=== PATIENT | female | born 1980 | race Two or more races ===

== ENCOUNTER 2022-02-10 11:20 | Emergency (ER) | payer OTHER, SELFPAY ==
--- NOTE | ~2022-02-10 | XR_ITS ---
EXAMINATION: XR CHEST CLINICAL INFORMATION: Chest pain COMPARISON: None TECHNIQUE: 2 views of the chest were obtained. FINDINGS: No significant abnormality is noted involving the heart, lungs, mediastinum, bony thorax or soft tissues. XR/XR chest 2V IMPRESSION: Unremarkable chest examination.
--- NOTE | 2022-02-10 11:23 | ECG_ITS ---
Test Reason : headache/ chest discomfort/ hypertension Blood Pressure : / mmHG Vent. Rate : 067 BPM Atrial Rate : 067 BPM P-R Int : 144 ms QRS Dur : 084 ms QT Int : 384 ms P-R-T Axes : 043 -16 020 degrees QTc Int : 405 ms Normal sinus rhythm Moderate voltage criteria for LVH, may be normal variant ( R in aVL , [place] product ) Borderline ECG When compared to the previous EKG of No significant changes seen Referred By: Generic ED Physician Electronically Signed By:BLANCHE LOPEZ MD
[2022-02-10 11:24] VITALS: BP 173/100; PULSE 85; RESP 19; TEMP 36.6; O2SAT 100; BMI 28.3
[2022-02-10 11:46] LABS: MANUAL DIFF FLAG NO
[2022-02-10 11:50] LABS: Basophils Percent Auto 0.5 % (0-2); Eosinophils Absolute Auto 0.1 X10*3/uL (0.0-0.4); Eosinophils Percent Auto 1.8 % (0-4); Hematocrit 41.5 % (37.0-47.0); Hemoglobin 13.6 g/dl (12.0-16.0); Imm Gran Abs Auto 0.01 X10*3/uL (0.00-0.03); Imm Gran Pct Auto 0.2 % (0.0-0.4); Lymphocytes Absolute Auto 2.1 X10*3/uL (1.2-4.9); Lymphocytes Percent Auto 37.3 % (20-40); Mean Corpuscular HGB Conc 32.8 g/dl (31.0-35.0); Mean Corpuscular Hemoglobin 29.9 pg (27.0-33.0); Mean Corpuscular Volume 91.2 fL (80.0-98.0); Mean Platelet Volume 10.1 fL (9.4-12.3); Monocytes Absolute Auto 0.4 X10*3/uL (0.1-1.2); Monocytes Percent Auto 6.5 % (2-11); Neutrophils Absolute Auto 3.1 x10*3/uL (2.0-8.3); Neutrophils Percent Auto 53.7 % (45-73); Platelet Count 310 X10*3/uL (160-400); Red Blood Count 4.55 X10*6/uL (4.20-5.50); White Blood Count 5.7 X10*3/uL (4.8-10.8)
[2022-02-10 12:00] LABS: Anion Gap 12 (12-20); Blood Urea Nitrogen 10 mg/dL (9-16); Calcium 9.3 mg/dL (8.4-10.2); Carbon Dioxide 25 mmol/L (22-29); Chloride 106 mmol/L (96-108); Creatinine Clr Calc Pharmacy 93.6; Estimated Glomerular Filt Rate > 60; Glucose Random 92 mg/dL (60-115); Potassium 4.4 mmol/L (3.3-5.1); Sodium 139 mmol/L (135-145)
[2022-02-10 12:06] LABS: Troponin-I High Sensitivity < 3.5 ng/L (<3.5-17.0)
[2022-02-10 12:09] LABS: IDNOW Serial# 9DB6401D; Influenza A Negative (Negative); Influenza B2 Negative (Negative)
--- NOTE | 2022-02-10 12:23 | ED.CHESTPAIN ---
HPI - Chest Pain General Chief Complaint: Chest Pain Stated Complaint: high bp and chest pain Time Seen by Provider: 02/10/22 12:23 Source: patient Mode of arrival: ambulatory Limitations: no limitations History of Present Illness HPI narrative: HTN months ago was on chlorthalidone came off due to feeling dizzy on it - BP seemed okay BP has been high at home MD complaint: chest pain (headache, dizziness, HTN) Pertinent past history: other (HTN) Onset (ago): day(s) (HTN for a few days headache and chest pain since last night) Timing of current episode: constant Prior episodes: Yes Onset: during rest Pain location: substernal Pain radiation: none Severity: mild Quality: heaviness Exacerbating factors: nothing Context: other (untreated HTN) Treatment prior to arrival: none Related Data Previous Rx's Medication Instructions Recorded losartan 25 mg tablet 12.5 mg PO DAILY #30 tabs 02/10/22 Allergies Allergy/AdvReac Type Severity Reaction Status Date / Time drospirenone [From JUICE Schwarz] Allergy Mild RASH Unverified 05/15/20 14:46 ethinyl estradiol Allergy Mild RASH Unverified 05/15/20 14:46 [From JUICE Schwarz] JUICE Allergy Unknown rash Uncoded 11/12/11 00:00 Review of Systems Review of Systems: Constitutional : No Weight loss, No Fever, No Chills ENT/Mouth : No sore throat, No Rhinorrhea Eyes: No Eye Pain, No Swelling Cardiovascular : pos Chest Pain, no SOB, no Dyspnea on Exertion, No Orthopnea, No Edema, No Palpitations Respiratory : No Cough, No Sputum Gastrointestinal : no Nausea, No Vomiting, No Diarrhea, No abdominal Pain, No Hematochezia, No Melena Genitourinary : No Dysuria, No Urinary Frequency Musculoskeletal : No joint pain, No Myalgias, No Joint Swelling Skin : No Skin Lesions, No rash Neuro : No Weakness, No Numbness, No Dizziness, pos Headache Psych : No Anxiety/Panic, No Depression Heme/Lymph: No Bruising, No Lymphadenopathy Endocrine : No Polyuria, No Polydipsia All other systems reviewed and are negative FOR[facility]LY [facility] Past Medical History Attestation statement: The following information was validated with the patient. Medical History HTN (hypertension) Social History Social History (Updated 02/10/22 @ 13:08 by Elyssa Wilson DO) Patient Tobacco Use Status: Never used Tobacco Advance Directives: No Advance Directives Information Provided: No Physical Exam Vital Signs: Vital Signs: Last Vital Signs Temp 98.7 F 02/10/22 13:06 Pulse 64 02/10/22 13:06 Resp 24 H 02/10/22 13:06 BP 170/89 H 02/10/22 13:06 Pulse Ox 99 02/10/22 13:06 O2 Del Method 02/10/22 13:06 BMI result Body Mass Index 28.3 Appearance: Alert. Oriented X3. No acute distress. Eyes: Pupils equal, round and reactive to light. ENT: Pharynx normal. Neck: Normal inspection. Neck supple. CVS: Normal heart rate and rhythm. Pulses normal. Respiratory: No respiratory distress. Breath sounds normal. Abdomen: Soft and non-tender. Skin: Skin warm and dry. Normal skin color. Normal skin turgor. Extremities: No lower extremity edema. No calf ttp Neuro: Oriented X 3. No motor deficit. No sensory deficit. Course Course Course Narrative: repeat BP better, feels fine stable for DC MDM - Chest Pain MDM Narrative Medical decision making narrative: 41 yo female with hx of HTN used to be on chlorthalidone here with c/o HTN chest discomfort - EKG and trop flat with 6 hours of pain, headache but no neuro deficits. At this time will need basic labs, start on losartan - dispo per results and findings. Was on HTN medications in the past took off due to feeling off on them. Lab Data Result diagrams: 02/10/22 11:42 02/10/22 11:42 Labs: Lab Results 02/10/22 02/10/22 02/10/22 Range/Units 11:42 11:42 11:42 WBC 5.7 (4.8-10.8) X10*3/uL RBC 4.55 (4.20-5.50) X10*6/uL Hgb 13.6 (12.0-16.0) g/dl Hct 41.5 (37.0-47.0) % MCV 91.2 (80.0-98.0) fL MCH 29.9 (27.0-33.0) pg MCHC 32.8 (31.0-35.0) g/dl RDW 13.0 (11.0-16.0) % Plt Count 310 (160-400) X10*3/uL MPV 10.1 (9.4-12.3) fL Immature Gran % (Auto) 0.2 (0.0-0.4) % Neut % (Auto) 53.7 (45-73) % Lymph % (Auto) 37.3 (20-40) % [place] % (Auto) 6.5 (2-11) % Eos % (Auto) 1.8 (0-4) % Baso % (Auto) 0.5 (0-2) % Lymph # (Auto) 2.1 (1.2-4.9) X10*3/uL [place] # (Auto) 0.4 (0.1-1.2) X10*3/uL Eos # (Auto) 0.1 (0.0-0.4) X10*3/uL Baso # (Auto) 0.0 (0.0-0.2) X10*3/uL Abs Immat Gran (auto) 0.01 (0.00-0.03) X10*3/uL Absolute Neuts (auto) 3.1 (2.0-8.3) x10*3/uL Absolute Nucleated RBC 0.000 (0.0-0.012) X10*3/uL Nucleated RBC % (auto) 0.0 (0.0-0.2) /100WBC Sodium 139 (135-145) mmol/L Potassium 4.4 (3.3-5.1) mmol/L Chloride 106 (96-108) mmol/L Carbon Dioxide 25 (22-29) mmol/L Anion Gap 12 (12-20) BUN 10 (9-16) mg/dL Creatinine 0.77 (0.5-1.4) mg/dL Estim Creat Clear Calc 93.6 Estimated GFR > 60 Random Glucose 92 (60-115) mg/dL Calcium 9.3 (8.4-10.2) mg/dL Troponin I High Sens < 3.5 (<3.5-17.0) ng/L TSH 1.18 (0.32-4.0) uIU/mL Urine Color Urine Appearance Urine pH (5.0-8.0) Ur Specific [place] (1.005-1.025) Urine Protein (NEG-TRACE) MG/DL Urine Glucose (UA) (NEG) MG/DL Urine Ketones (NEG) MG/DL Urine Blood (NEG) Urine Nitrite (NEG) Ur Leukocyte Esterase (NEG) Urine RBC (0) /HPF Urine WBC (0-4) /HPF Ur Squamous Epith Cells /LPF Urine Bacteria /LPF Urine Test (NEGATIVE) COVID-19 (NICKOLAS) (Negative) COVID-19 Clin Com Influenza Type A (KAREL) (Negative) Influenza Type B (KAREL) (Negative) Influenza A & B Note 02/10/22 02/10/22 02/10/22 Range/Units 11:42 11:42 12:21 WBC (4.8-10.8) X10*3/uL RBC (4.20-5.50) X10*6/uL Hgb (12.0-16.0) g/dl Hct (37.0-47.0) % MCV (80.0-98.0) fL MCH (27.0-33.0) pg MCHC (31.0-35.0) g/dl RDW (11.0-16.0) % Plt Count (160-400) X10*3/uL MPV (9.4-12.3) fL Immature Gran % (Auto) (0.0-0.4) % Neut % (Auto) (45-73) % Lymph % (Auto) (20-40) % [place] % (Auto) (2-11) % Eos % (Auto) (0-4) % Baso % (Auto) (0-2) % Lymph # (Auto) (1.2-4.9) X10*3/uL [place] # (Auto) (0.1-1.2) X10*3/uL Eos # (Auto) (0.0-0.4) X10*3/uL Baso # (Auto) (0.0-0.2) X10*3/uL Abs Immat Gran (auto) (0.00-0.03) X10*3/uL Absolute Neuts (auto) (2.0-8.3) x10*3/uL Absolute Nucleated RBC (0.0-0.012) X10*3/uL Nucleated RBC % (auto) (0.0-0.2) /100WBC Sodium (135-145) mmol/L Potassium (3.3-5.1) mmol/L Chloride (96-108) mmol/L Carbon Dioxide (22-29) mmol/L Anion Gap (12-20) BUN (9-16) mg/dL Creatinine (0.5-1.4) mg/dL Estim Creat Clear Calc Estimated GFR Random Glucose (60-115) mg/dL Calcium (8.4-10.2) mg/dL Troponin I High Sens (<3.5-17.0) ng/L TSH (0.32-4.0) uIU/mL Urine Color STRAW Urine Appearance CLEAR Urine pH 6.5 (5.0-8.0) Ur Specific [place] <= 1.005 (1.005-1.025) Urine Protein NEG (NEG-TRACE) MG/DL Urine Glucose (UA) NEG (NEG) MG/DL Urine Ketones NEG (NEG) MG/DL Urine Blood TRACE (NEG) Urine Nitrite NEG (NEG) Ur Leukocyte Esterase NEG (NEG) Urine RBC 0-2 (0) /HPF Urine WBC 0 (0-4) /HPF Ur Squamous Epith Cells 1+ /LPF Urine Bacteria NONE /LPF Urine Test (NEGATIVE) COVID-19 ([place]) Negative (Negative) COVID-19 Clin Com See Note Influenza Type A (KAREL) Negative (Negative) Influenza Type B (KAREL) Negative (Negative) Influenza A & B Note See Note 02/10/22 Range/Units 12:21 WBC (4.8-10.8) X10*3/uL RBC (4.20-5.50) X10*6/uL Hgb (12.0-16.0) g/dl Hct (37.0-47.0) % MCV (80.0-98.0) fL MCH (27.0-33.0) pg MCHC (31.0-35.0) g/dl RDW (11.0-16.0) % Plt Count (160-400) X10*3/uL MPV (9.4-12.3) fL Immature Gran % (Auto) (0.0-0.4) % Neut % (Auto) (45-73) % Lymph % (Auto) (20-40) % [place] % (Auto) (2-11) % Eos % (Auto) (0-4) % Baso % (Auto) (0-2) % Lymph # (Auto) (1.2-4.9) X10*3/uL [place] # (Auto) (0.1-1.2) X10*3/uL Eos # (Auto) (0.0-0.4) X10*3/uL Baso # (Auto) (0.0-0.2) X10*3/uL Abs Immat Gran (auto) (0.00-0.03) X10*3/uL Absolute Neuts (auto) (2.0-8.3) x10*3/uL Absolute Nucleated RBC (0.0-0.012) X10*3/uL Nucleated RBC % (auto) (0.0-0.2) /100WBC Sodium (135-145) mmol/L Potassium (3.3-5.1) mmol/L Chloride (96-108) mmol/L Carbon Dioxide (22-29) mmol/L Anion Gap (12-20) BUN (9-16) mg/dL Creatinine (0.5-1.4) mg/dL Estim Creat Clear Calc Estimated GFR Random Glucose (60-115) mg/dL Calcium (8.4-10.2) mg/dL Troponin I High Sens (<3.5-17.0) ng/L TSH (0.32-4.0) uIU/mL Urine Color Urine Appearance Urine pH (5.0-8.0) Ur Specific [place] (1.005-1.025) Urine Protein (NEG-TRACE) MG/DL Urine Glucose (UA) (NEG) MG/DL Urine Ketones (NEG) MG/DL Urine Blood (NEG) Urine Nitrite (NEG) Ur Leukocyte Esterase (NEG) Urine RBC (0) /HPF Urine WBC (0-4) /HPF Ur Squamous Epith Cells /LPF Urine Bacteria /LPF Urine Test NEGATIVE (NEGATIVE) COVID-19 ([place]) (Negative) COVID-19 Clin Com Influenza Type A (KAREL) (Negative) Influenza Type B (KAREL) (Negative) Influenza A & B Note ECG Data ECG #1: Attestation: I personally reviewed and interpreted this ECG as follows: ECG interpretation date: 02/10/22 ECG interpretation time: 12:24 Interpretation: Rate: 67 Rhythm: NSR [place]: left, LVH Normal P waves. Normal BUD. Normal QRS complex. ST T wave : normal no DONALD qTC: normal prior studies: no acute ischemia The study has been interpreted contemporaneously by me. Discharge Plan Discharge Clinical Impression: HTN (hypertension) Qualifiers: Hypertension type: unspecified Qualified Code(s): I10 - Essential (primary) hypertension Patient Disposition: Home, Self-Care Instructions: Hypertension (ED) Additional Instructions: return to ED for any worsening symptoms or concerns losartan 12.5mg tomorrow if no improvement of BP and still above 150 start Tuesday 25mg Prescriptions: New losartan 25 mg tablet 12.5 mg PO DAILY Qty: 30 1RF Referrals: Daisy Mercedes MD [Primary Care Provider] - 2 days Stand Alone Forms: Work/School Release
[2022-02-10 12:25] LABS: COVID-19 Test Negative (Negative)
[2022-02-10 12:30] LABS: Appearance Urine CLEAR; Color Urine STRAW; Glucose Urine UA NEG (NEG); Leukocyte Esterase Urine NEG (NEG); Nitrite Urine NEG (NEG); PH 6.5 (5.0-8.0); Specific Gravity - Urine <= 1.005 (1.005-1.025); UACC Culture Trigger NO; Urine Blood TRACE (NEG); Urine Ketones NEG (NEG); Urine Protein NEG (NEG-TRACE)
[2022-02-10 12:32] LABS: UPreg QC Valid YES; Urine Pregnancy NEGATIVE (NEGATIVE)
[2022-02-10 12:40] LABS: RBC Urine 0-2 /HPF (0); Squamous Epithelial Cell Urine 1+ /LPF; WBC Urine 0 /HPF (0-4)
[2022-02-10 13:06] VITALS: BP 170/89; PULSE 64; RESP 24; TEMP 37.1; O2SAT 99
[2022-02-10 13:14] LABS: TSH reflex Free T4 1.18 uIU/mL (0.32-4.0)
[2022-02-10] MEDS: Losartan Potassium 25 MG TABLET 12.5 MG PO (13:35)
== END 2022-02-10 14:29 | disposition home or self-care (01) ==
PROVIDERS: Emergency Provider Emergency Medicine; PCP Internal Medicine
DX: I10 Essential (primary) hypertension (principal); R07.9 Chest pain, unspecified; Z20.822 Contact with and (suspected) exposure to COVID-19
CPT/HCPCS: 36415; 71046; 80048; 81001; 81025; 84443; 84484; 85025; 87502; 87635; 93005; 99283

== ENCOUNTER 2022-04-14 22:38 | Emergency (ER) | payer OTHER, SELFPAY ==
[2022-04-14 22:51] VITALS: BP 178/107; PULSE 85; RESP 18; TEMP 36.7; O2SAT 98; BMI 28.3
--- NOTE | 2022-04-14 22:54 | ECG_ITS ---
Test Reason : HYPERTENTION Blood Pressure : / mmHG Vent. Rate : 077 BPM Atrial Rate : 077 BPM P-R Int : 156 ms QRS Dur : 086 ms QT Int : 362 ms P-R-T Axes : 048 -15 020 degrees QTc Int : 409 ms Normal sinus rhythm with sinus arrhythmia Moderate voltage criteria for LVH, may be normal variant ( R in aVL , [place] product ) Borderline ECG When compared with ECG of 10-FEB-2022 11:23, No significant change was found Referred By: Generic ED Physician Electronically Signed By:ELISE JARVIS
[2022-04-14 23:04] LABS: MANUAL DIFF FLAG NO
[2022-04-14 23:07] LABS: Basophils Percent Auto 0.5 % (0-2); Eosinophils Absolute Auto 0.1 X10*3/uL (0.0-0.4); Eosinophils Percent Auto 1.4 % (0-4); Hematocrit 38.6 % (37.0-47.0); Hemoglobin 12.7 g/dl (12.0-16.0); Imm Gran Abs Auto 0.01 X10*3/uL (0.00-0.03); Imm Gran Pct Auto 0.1 % (0.0-0.4); Lymphocytes Absolute Auto 2.8 X10*3/uL (1.2-4.9); Lymphocytes Percent Auto 35.8 % (20-40); Mean Corpuscular HGB Conc 32.9 g/dl (31.0-35.0); Mean Corpuscular Hemoglobin 30.1 pg (27.0-33.0); Mean Corpuscular Volume 91.5 fL (80.0-98.0); Mean Platelet Volume 9.7 fL (9.4-12.3); Monocytes Absolute Auto 0.5 X10*3/uL (0.1-1.2); Monocytes Percent Auto 6.3 % (2-11); Neutrophils Absolute Auto 4.4 x10*3/uL (2.0-8.3); Neutrophils Percent Auto 55.9 % (45-73); Platelet Count 294 X10*3/uL (160-400); Red Blood Count 4.22 X10*6/uL (4.20-5.50); Red Cell Distribution Width 12.7 % (11.0-16.0); White Blood Count 7.8 X10*3/uL (4.8-10.8)
[2022-04-14 23:23] LABS: Anion Gap 16 (12-20); Blood Urea Nitrogen 14 mg/dL (9-16); Calcium 9.4 mg/dL (8.4-10.2); Carbon Dioxide 24 mmol/L (22-29); Chloride 107 mmol/L (96-108); Creatinine Clr Calc Pharmacy 76.7; Estimated Glomerular Filt Rate > 60; Glucose Random 103 mg/dL (60-115); Potassium 4.3 mmol/L (3.3-5.1); Sodium 143 mmol/L (135-145)
[2022-04-14 23:26] LABS: Troponin-I High Sensitivity < 3.5 ng/L (<3.5-17.0)
[2022-04-15 01:16] VITALS: BP 154/84; PULSE 64; RESP 16; TEMP 36.6; O2SAT 98
[2022-04-15 01:38] LABS: Appearance Urine Clear; Color Urine Yellow; Glucose Urine UA Negative (Negative); Leukocyte Esterase Urine Negative (Negative); Nitrite Urine Negative (Negative); PH 6.5 (5.0-8.0); Specific Gravity - Urine 1.015 (1.005-1.025); Urine Blood Trace (Negative); Urine Ketones 15 mg/dL (Negative); Urine Protein Negative (Neg-Trace)
[2022-04-15 01:43] LABS: Bacteria Urine Trace (None Seen); Hyaline Casts Urine 0-2 /LPF (0-2); Squamous Epithelial Cell Urine 0-2 /HPF (0-2); WBC Urine 0-5 /HPF (0-5)
--- NOTE | 2022-04-15 02:08 | ED_ITS ---
HPI - General Adult General Chief complaint: General Medical Stated complaint: elevated bp,dizziness nausea,jaw pain Time Seen by Provider: 04/15/22 00:16 Source: patient Mode of arrival: ambulatory History of Present Illness HPI narrative: 41-year-old female with history hypertension presents with complaints of headache and mild dizziness and when she took her blood pressure home she noted that it was ?very high?. Patient states that she ran out of her blood pressure medication on Tuesday and attempted to reach out to her primary care provider but was unsuccessful in getting the prescription refilled which prompted her to be evaluated in the emergency room. She denies shortness of breath, chest pain, palpitations. Related Data Previous Rx's Medication Instructions Recorded losartan 25 mg tablet 12.5 mg PO DAILY #30 tabs 02/10/22 losartan 25 mg tablet 25 mg PO DAILY #14 tabs 04/15/22 Allergies Allergy/AdvReac Type Severity Reaction Status Date / Time Tetanus Vaccines and Toxoid Allergy Intermediate Unknown Verified 04/14/22 22:51 drospirenone [From JUICE Schwarz] Allergy Mild RASH Verified 04/14/22 22:50 ethinyl estradiol Allergy Mild RASH Verified 04/14/22 22:50 [From JUICE 28] JUICE Allergy Unknown rash Uncoded 11/12/11 00:00 Review of Systems Review of Systems: Pertinent positives and negatives as stated in HPI 10 point review of systems is otherwise negative. PMFSH Past Medical History Source: nursing notes reviewed Medical History HTN (hypertension) Social History Social History Patient Tobacco Use Status: Never used Tobacco Advance Directives: No Physical Exam ED Vital Signs: Vital Signs - 24 hr 04/14/22 22:51 04/15/22 01:16 Temperature 98.1 F 97.9 F Pulse Rate 85 64 Respiratory Rate 18 16 Blood Pressure 178/107 H 154/84 H Pulse Oximetry 98 98 Oxygen Delivery Method Room Air Room Air BMI result Body Mass Index 28.3 VITAL SIGNS: Reviewed. GENERAL: Well developed, well nourished, in no acute distress. HEAD: Normocephalic/atraumatic EYES: PERRLA, EOMI EARS: Ext canals without abnormality OROPHARYNX: no oral lesions noted, posterior pharynx clear LUNGS: Normal breath sounds. No adventitious sounds or accessory muscle use. SpO2<>98 CARDIOVASCULAR: Regular rate and rhythm without noted murmurs, no JVD or lower extremity edema. ABDOMEN: Soft, non-tender, non-distended with bowel sounds. MUSCULOSKELETAL: No tenderness, deformities, or effusions noted on gross inspection. EXTREMITIES: No cyanosis, clubbing or edema. SKIN: Inspection of the skin reveals no rashes NEUROLOGIC: Alert and oriented x 4. Strength and sensation to light touch were grossly intact x 4, no facial asymmetry, no pronator drift, cranial nerves 2-12 are grossly intact. Course Course Course Narrative: 41-year-old female with history and clinical presentation consistent with symptomatic hypertension with all symptoms resolving once blood pressure was controlled. Patient provided with 25 mg of losartan here in the emergency room, as this is her current prescription. Patient states that she has a follow-up appointment with her primary care provider on 04/18. Patient was informed of all results and will be discharged with a 2 week supply. Medical Decision Making Lab Data Result diagrams: 04/14/22 23:01 04/14/22 23:01 Labs: Lab Results 04/14/22 04/14/22 04/14/22 Range/Units 23:01 23:01 23:01 WBC 7.8 (4.8-10.8) X10*3/uL RBC 4.22 (4.20-5.50) X10*6/uL Hgb 12.7 (12.0-16.0) g/dl Hct 38.6 (37.0-47.0) % MCV 91.5 (80.0-98.0) fL MCH 30.1 (27.0-33.0) pg MCHC 32.9 (31.0-35.0) g/dl RDW 12.7 (11.0-16.0) % Plt Count 294 (160-400) X10*3/uL MPV 9.7 (9.4-12.3) fL Immature Gran % (Auto) 0.1 (0.0-0.4) % Neut % (Auto) 55.9 (45-73) % Lymph % (Auto) 35.8 (20-40) % [place] % (Auto) 6.3 (2-11) % Eos % (Auto) 1.4 (0-4) % Baso % (Auto) 0.5 (0-2) % Lymph # (Auto) 2.8 (1.2-4.9) X10*3/uL [place] # (Auto) 0.5 (0.1-1.2) X10*3/uL Eos # (Auto) 0.1 (0.0-0.4) X10*3/uL Baso # (Auto) 0.0 (0.0-0.2) X10*3/uL Abs Immat Gran (auto) 0.01 (0.00-0.03) X10*3/uL Absolute Neuts (auto) 4.4 (2.0-8.3) x10*3/uL Absolute Nucleated RBC 0.000 (0.0-0.012) X10*3/uL Nucleated RBC % (auto) 0.0 (0.0-0.2) /100WBC Sodium 143 (135-145) mmol/L Potassium 4.3 (3.3-5.1) mmol/L Chloride 107 (96-108) mmol/L Carbon Dioxide 24 (22-29) mmol/L Anion Gap 16 (12-20) BUN 14 (9-16) mg/dL Creatinine 0.94 (0.5-1.4) mg/dL Estim Creat Clear Calc 76.7 Estimated GFR > 60 Random Glucose 103 (60-115) mg/dL Calcium 9.4 (8.4-10.2) mg/dL Troponin I High Sens < 3.5 (<3.5-17.0) ng/L Urine Color Urine Appearance Urine pH (5.0-8.0) Ur Specific [place] (1.005-1.025) Urine Protein (Neg-Trace) mg/dL Urine Glucose (UA) (Negative) mg/dL Urine Ketones (Negative) mg/dL Urine Blood (Negative) Urine Nitrite (Negative) Ur Leukocyte Esterase (Negative) Urine RBC (0-2) /HPF Urine WBC (0-5) /HPF Ur Squamous Epith Cells (0-2) /HPF Urine Bacteria (None Seen) Hyaline Casts (0-2) /LPF 04/15/22 Range/Units 01:16 WBC (4.8-10.8) X10*3/uL RBC (4.20-5.50) X10*6/uL Hgb (12.0-16.0) g/dl Hct (37.0-47.0) % MCV (80.0-98.0) fL MCH (27.0-33.0) pg MCHC (31.0-35.0) g/dl RDW (11.0-16.0) % Plt Count (160-400) X10*3/uL MPV (9.4-12.3) fL Immature Gran % (Auto) (0.0-0.4) % Neut % (Auto) (45-73) % Lymph % (Auto) (20-40) % [place] % (Auto) (2-11) % Eos % (Auto) (0-4) % Baso % (Auto) (0-2) % Lymph # (Auto) (1.2-4.9) X10*3/uL [place] # (Auto) (0.1-1.2) X10*3/uL Eos # (Auto) (0.0-0.4) X10*3/uL Baso # (Auto) (0.0-0.2) X10*3/uL Abs Immat Gran (auto) (0.00-0.03) X10*3/uL Absolute Neuts (auto) (2.0-8.3) x10*3/uL Absolute Nucleated RBC (0.0-0.012) X10*3/uL Nucleated RBC % (auto) (0.0-0.2) /100WBC Sodium (135-145) mmol/L Potassium (3.3-5.1) mmol/L Chloride (96-108) mmol/L Carbon Dioxide (22-29) mmol/L Anion Gap (12-20) BUN (9-16) mg/dL Creatinine (0.5-1.4) mg/dL Estim Creat Clear Calc Estimated GFR Random Glucose (60-115) mg/dL Calcium (8.4-10.2) mg/dL Troponin I High Sens (<3.5-17.0) ng/L Urine Color Yellow Urine Appearance Clear Urine pH 6.5 (5.0-8.0) Ur Specific [place] 1.015 (1.005-1.025) Urine Protein Negative (Neg-Trace) mg/dL Urine Glucose (UA) Negative (Negative) mg/dL Urine Ketones 15 (Negative) mg/dL Urine Blood Trace H (Negative) Urine Nitrite Negative (Negative) Ur Leukocyte Esterase Negative (Negative) Urine RBC 6-10 H (0-2) /HPF Urine WBC 0-5 (0-5) /HPF Ur Squamous Epith Cells 0-2 (0-2) /HPF Urine Bacteria Trace (None Seen) Hyaline Casts 0-2 (0-2) /LPF Discharge Plan Discharge Clinical Impression: Hypertension without cardiac signs or symptoms Patient Disposition: Home, Self-Care Instructions: DASH Eating Plan (ED), Hypertension (ED) Additional Instructions: 1. Resume all home medications as prescribed. 2. Follow-up with your primary care provider as scheduled on 04/18. Return to the ER for worsening symptoms. Prescriptions: New losartan 25 mg tablet 25 mg PO DAILY Qty: 14 0RF No Action losartan 25 mg tablet 12.5 mg PO DAILY Qty: 30 1RF Referrals: Daisy Mercedes MD [Physician] -
[2022-04-15] MEDS: Losartan Potassium 25 MG TABLET PO (02:16)
[2022-04-15 02:20] VITALS: BP 139/87; PULSE 89; RESP 16; O2SAT 99
== END 2022-04-15 02:21 | disposition home or self-care (01) ==
PROVIDERS: Emergency Provider Student in an Organized Health Care Education/Training Program
DX: I10 Essential (primary) hypertension (principal)
CPT/HCPCS: 36415; 80048; 81001; 84484; 85025; 93005; 99284

== ENCOUNTER 2024-10-12 15:45 | Outpatient (REF) | payer OTHER, SELFPAY ==
--- NOTE | ~2024-10-12 | MR_ITS ---
EXAMINATION: MR BRAIN WITHOUT AND WITH CONTRAST CLINICAL INFORMATION: Headache. Migraines. Numbness. COMPARISON: No prior MRI. Correlated to CT brain dated June 13, 2013. TECHNIQUE: Multiplanar, multisequence MRI of the brain was obtained before and after the intravenous administration of 8.5 mL gadolinium based contrast without reported immediate complications. FINDINGS: No restricted diffusion within the brain parenchyma. No acute intracranial hemorrhage, mass effect, midline shift, hydrocephalus or herniation. Gonsalez-white matter differentiation is normal. Posterior cranial fossa contents demonstrated no acute intracranial hemorrhage or masses. Sellar/suprasellar region is normal. Craniocervical junction is intact and normal. Midline structures are normal. Flow-void signal within the main cerebral vessels is normal. No abnormal enhancement within the intra-axial or the extra-axial compartments. No signal abnormality or volume loss in the hippocampi. MR/MR head/brain wo/w con IMPRESSION: No acute or structural brain abnormality. No abnormal enhancement. Electronically signed by: Phuc Noel MD 10/16/2024 07:39 AM EST
[2024-10-12] MEDS: gadobutroL 10 ML VIAL IVPUSH (16:52)
== END 2024-10-12 15:46 | disposition home or self-care (01) ==
LOC: HO.MRI 15:45
PROVIDERS: PCP Nurse Practitioner Adult Health; Visit Provider Internal Medicine
DX: G43.119 Migraine with aura, intractable, without status migrainosus (principal); R20.2 Paresthesia of skin; H54.7 Unspecified visual loss
CPT/HCPCS: 70553; A9585

== ENCOUNTER → 2024-10-12 16:05 | Outpatient (BNV) | payer OTHER, SELFPAY | PROVIDERS: PCP Nurse Practitioner Adult Health; Visit Provider Radiology Diagnostic Radiology | DX: G43.909 Migraine, unspecified, not intractable, without status migrainosus (principal); R20.0 Anesthesia of skin | CPT/HCPCS: 70553 ==

== ENCOUNTER 2024-11-23 15:51 | Outpatient (REF) | payer OTHER, SELFPAY ==
--- NOTE | ~2024-11-23 | MR_ITS ---
EXAMINATION: MR CERVICAL SPINE WITHOUT AND WITH CONTRAST CLINICAL INFORMATION: Optic neuritis. Headache COMPARISON: None available. TECHNIQUE: MRI of the cervical spine was obtained using routine sequences with and without contrast. Intravenous contrast: (Gadavist) 8.5 mL. No reported immediate complications. FINDINGS: The cervical spinal cord signal is normal. The cervical spinal cord caliber is normal. No abnormal enhancement within the cervical spinal cord. No abnormal enhancement in the leptomeningeal compartment or the prevertebral compartment. Craniocervical junction is intact and normal. No gross enhancing lesion within the included posterior cranial fossa contents. No bone marrow STIR signal abnormality. The alignment is normal. No disc herniation or neuroforamina stenosis from C2 to T1. MR/MR cervical spine wo/w con IMPRESSION: No enhancing lesion and or mass. No demyelinating plaques. No acute fracture or listhesis nor cord compression. Electronically signed by: Phuc Noel MD 11/26/2024 10:10 AM EDT
[2024-11-23] MEDS: gadobutroL 10 ML VIAL IVPUSH (16:40)
== END 2024-11-23 15:52 | disposition home or self-care (01) ==
LOC: HO.MRI 15:51
PROVIDERS: PCP Nurse Practitioner Adult Health; Visit Provider Internal Medicine
DX: R20.0 Anesthesia of skin (principal); R90.82 White matter disease, unspecified; M54.2 Cervicalgia; G35 Multiple sclerosis; M48.04 Spinal stenosis, thoracic region
CPT/HCPCS: 72156; A9585

== ENCOUNTER → 2024-11-23 16:04 | Outpatient (BNV) | payer OTHER, SELFPAY | PROVIDERS: PCP Nurse Practitioner Adult Health; Visit Provider Radiology Diagnostic Radiology | DX: H46.9 Unspecified optic neuritis (principal); R51.9 Headache, unspecified | CPT/HCPCS: 72156 ==

== ENCOUNTER 2024-12-07 14:56 | Outpatient (REF) | payer OTHER, SELFPAY ==
--- NOTE | ~2024-12-07 | MR_ITS ---
EXAMINATION: MR THORACIC SPINE WITHOUT AND WITH CONTRAST CLINICAL INFORMATION: Follow-up MS. COMPARISON: None available at our institution The cord caliber appears normal. There is mild heterogeneity. TECHNIQUE: MRI of the thoracic spine was obtained using routine sequences with and without contrast. Intravenous contrast: Gadavist 8.5 mL. FINDINGS: There is normal thoracic kyphosis. The vertebral heights and alignment is normal. The disc heights and disc signal is preserved. No focal disc bulge, herniation or spinal canal stenosis seen. The cord caliber is preserved. There is no enhancing lesion seen in the choroid postcontrast study. Conus medullaris terminates at L1 vertebra. The bone marrow signal and the paravertebral soft tissues are normal. MR/MR thoracic spine wo/w con IMPRESSION: No enhancing cord lesion or abnormal cord signal seen. No cord caliber is preserved. Rest of the MRI T-spine appears unremarkable Electronically signed by: Jono De Los Santos MD 12/10/2024 09:16 AM EDT
[2024-12-07] MEDS: gadobutroL 10 ML VIAL IVPUSH (15:44)
== END 2024-12-07 14:57 | disposition home or self-care (01) ==
LOC: HO.MRI 14:56
PROVIDERS: PCP Nurse Practitioner Adult Health; Visit Provider Internal Medicine
DX: H46.9 Unspecified optic neuritis (principal); G35 Multiple sclerosis; R20.0 Anesthesia of skin
CPT/HCPCS: 72157; A9585

== ENCOUNTER → 2024-12-07 15:06 | Outpatient (BNV) | payer OTHER, SELFPAY | PROVIDERS: PCP Nurse Practitioner Adult Health; Visit Provider Radiology Diagnostic Radiology | DX: G35 Multiple sclerosis (principal) | CPT/HCPCS: 72157 ==

== ENCOUNTER 2025-08-16 20:58 | Emergency (ER) | payer OTHER, SELFPAY ==
--- NOTE | ~2025-08-16 | XR_ITS ---
CLINICAL HISTORY: puncture wound proximal 5th metacarpal 3 view left hand Comparison: None provided Findings: Bones intact. No dislocations. No radiopaque foreign body. IMPRESSION: 1. No acute fracture or dislocation injury identified at the left hand. No radiopaque foreign body visualized. This document has been electronically signed by: Song Diaz MD on 08/17/2025 02:45:59
[2025-08-16 21:08] VITALS: BP 150/67; PULSE 90; RESP 18; TEMP 36.4; O2SAT 99; BMI 30.9
--- OUTSIDE RECORDS SUMMARY | 2025-08-16 22:36 | XMS_ITS | Clinical Summary ---
Author Organization [facility] Address [address] [place] [address] Phone Care Team Providers Care Technical Service Specialist Name Role Phone Mikala Escobedo NP Primary Care Provider Medications norethindrone (AYGESTIN) 5 mg tablet Take 1 tablet by mouth daily. 01/21/2017 Active Encounters Date Type Department Care Team Description 07/24/2025 Transcribe Orders Virtual Department [address] [place] [address] Mikala Escobedo NP Acute bronchospasm (Primary Dx) 07/22/2025 Transcribe Orders [facility] [address], [address] [place] [address] Mikala Escobedo NP Dyspnea on exertion (Primary Dx) from Last 3 Months Family History Medical History Relation Comments Diabetes Maternal Grandfather Diabetes mellitus Maternal Grandfather Hypertension Maternal Grandfather Hypertension Maternal Grandmother Depression Mother Relation Status Comments Maternal Grandfather Maternal Grandmother Mother Alive Social History Tobacco Use Types Packs/Day Years Used Date Smoking Tobacco: Never Assessed Education Answer Date Recorded Are you interested in more education? Not on miley e 12/24/2022 Are you concerned about learning? Not on file 12/24/2022 No 12/24/2022 No 12/24/2022 Digital Access Answer Date Recorded No 01/22/2023 No 01/22/2023 Reliable internet access at home? Not on file 01/22/2023 Device with a working camera? Not on file Comments Unknown Sex and Gender Information Value Date Recorded Sex Assigned at Not on file Legal Sex Female 9:19 PM EDT Gender Identity Not on file Sexual Orientation Not on file Last Filed Vital Signs Vital Sign Reading Time Taken Comments Blood Pressure 118/80 01/21/2017 4:13 AM EDT Pulse - - Temperature - - Respiratory Rate - - Oxygen Saturation - - Inhaled Oxygen Concentration - - Weight 71.1 kg (156 lb 12.8 oz) 01/21/2017 4:13 AM EDT Height 165.1 cm (5' 5 ) 01/21/2017 4:13 AM EDT Body Mass Index 26.09 01/21/2017 4:13 AM EDT Plan of Treatment Upcoming Encounters Date Type Department Care Team (Late st Contact Info) Description 07/22/2025 Procedure [facility] [address] [place] [address] 09/23/2025 7:15 AM EST Appointment [facility] [address] [place] [address] Mikala Escobedo NP [address] [place] [address] 09/26/2025 7:15 AM EST Appointment [facility] [address] [place] [address] Mikala Escobedo NP [address] [place] [address] Health Maintenance Due Date Last Done Comments Adult Td,Tdap Booster 1980 DEPRESSION SCREENING 1994 SMOKING Hx and SMOKELESS TOBACCO SCREENING 1995 HEPATITIS C SCREENING 2000 HIV ONE-TIME SCREENING (18-6 5 YEARS) 2000 MAMMOGRAM 2022 PAP SMEAR 02/21/2024 02/20/2021 INFLUENZA VACCINE (#1) 2025 08/08/2020 COVID-19 VACCINE (3 2024-2 6 season) 2025 10/24/2020, 10/03/2020 COLOGUARD 07/23/2025 FIT TEST 07/23/2025 FOBT 07/23/2025 SIGMOIDOSCOPY 07/23/2025 VIRTUAL COLONOSCOPY 07/23/2025 COLONOSCOPY 04/08/2033 04/08/2023 COLORECTAL CANCER SCREENING 04/08/2033 HEPATITIS A VACCINES Aged Out No long er eligible based on patient's age to complete this topic HIB VACCINES Aged Out No longer eligi ble based on patient's age to complete this topic MENINGOCOCCAL VACCINES (ACWY) Aged Out No longer eligible based on patient's age to complete this topic MENINGOCOCCAL VACCINES (B) Aged Out N o longer eligible based on patient's age to complete this topic PNEUMOCOCCAL VACCINES (0-49 years) Aged Out No longer eligible b ased on patient's age to complete this topic Medical Devices Not on file Procedures Procedure Name Priority Date/Time Associated Diagnosis Comments COLONOSCOPY FOR RESULT ENTRY ONLY Routine 04/08/2023 PAP TEST Routine 02/20/2021 12:00 AM EDT from Last 3 Months or Most Recently Relevant to Health Maintenance Results * COLONOSCOPY FOR RESULT ENTRY ONLY (04/08/2023) Colonoscopy External Historical Provider HEALTH MAINTENANCE Final Result * Pap Smear (02/20/2021 12:00 AM EDT) 02/20/2021 02/23/2021 8:4 6 AM EDT Narrative SEE NARRATIVE - 03/04/2021 9:33 AM EDT [address] [address] Project Management Analyst: Yamini Ceja MD TELEGRAPH DISPATCHER Cytology Report FINAL DIAGNOSIS A. PAP SMEAR (SUREPATH) CE: SPECIMEN ADEQUACY: Satisfactory for evaluation; transformation zone absent/insufficient. INTERPRETATION: NEGATIVE FOR INTRAEPITHELIAL LESION OR MALIGNANCY. Electronically Signed Out By: RUDDY Zaidi(ASCP) The Pap test is a screening test primarily for squamous cancers and precursors and has associated false-negative and false-positive results. New technologies such as liquid-based preparations may decrease but will not eliminate all false-negative results. Regular sampling and follow-up of unexplained clinical signs and symptoms are recommended to minimize false negative results. PROCEDURES/ADDENDA HPV Testing (Requested) Ordered Date: 02/23/2021 A. PAP SMEAR (SUREPATH) CE: Human Papilloma Virus Test Negative for high-risk human papillomavirus types 16, 18, 45 and the Other high risk probe set (Includes 31, 33, 35, 39, 51, 52, 56, 58, 59, 66, 68) by [employer] Onclarity HR-HPV analysis. Clinical correlation is advised. This HPV test was performed at [facility], [address] [place] [address]. This test has been FDA approved for SurePath cervical cytology specimens. The accuracy and precision of this test for all other specimen sources has been verified in the Cytopathology Laboratory of the [facility] and has not been cleared or approved by the U.S. Food and Drug Administration. Clinical correlation is advised. CLINICAL HISTORY Date of Last Menstrual Period: Not Provided Menstrual History: Unknown Other Clinical Conditions: Screening Pap SPECIMEN SOURCE A: PAP SMEAR (SUREPATH) CE Patient Name: SURJITRANDAL REDDING : 1980 (Age: 40) Sex: F Institution: [facility] Location: [facility] Date of Collection: 02/20/2021 Date of Reported: 03/04/2021 09:33 Results to: Mikala Escobedo FAMILY RESOURCE SPECIALIST Mikala Escobedo NP CYTOLOGY ORDERABLES Final R esult SEE NARRATIVE from Last 3 Months or Most Recently Relevant to Health Maintenance Insurance [facility] CONNECTORCARE [place] [address] [place] [address] CONNECTORCARE DIRECT [facility]ARE DIRECT [facility] DIRECT [facility] DIRECT [facility] CONNECTORCARE DIRECT [facility] CONNECTOR[employer]ARE DIRECT [facility] [employer]ARE DIRECT Care Teams Technical Service Specialist Relationship Specialty Start Date End Date Mikala Escobedo NP [address] [place] [id number] PCP - General Nurse Practitioner 04/08/23 Additional Source Comments The information contained in this document represents components of the legal health record. It is not the complete legal health record.[facility]
--- OUTSIDE RECORDS SUMMARY | 2025-08-16 22:36 | XMS_ITS | Data Portability ---
Author Organization [facility], [address] Address [address] [place] [address] Assessment No assessment recorded. Plan of Treatment Reminders Order Date Submit Date Provider Last Modified By Organization Details Last Modified Time Details Appointments None recorded. Lab rapid strep group A, throat [address], [address], 10:02:39 Referral None recorded. Procedures None recorded. Surgeries None recorded. Imaging None recorded. Medication Orders amoxicillin 500 mg capsule 2022 023 [id number], [address] [place], [place], [phone], 10:02:50 loratadine 10 mg tablet 2022 023 [id number], [address], [place], [phone], 10:02:51 Patient TargetsNo targets recorded. Patient Instructions Encounter Date Encounter Id Patient Instructions Last Modified By Organization Details Last Modified Time 02/23/2023 [id number] sore throat: car e instructions [email or web address] Not available 02/23/2023 10:02:37 Reason for Referral None Reported. Results Created Date Observation Date Name Description Value Unit Range Abnormal Flag Note LastModifiedBy Organization Detail LastModifiedTime 02/24/2002/23/2023 rapid strep group A, throa t Unknown Analyte Normal = Negati ve Not Available [address] [place], [address], 02/23/2023 09:22:45 02/24/20 23 02/23/2023 rapid strep group A, throa t Unknown Analyte negati ve Not Available [address] [place], [address], 02/23/2023 09:22:45 Result Notes None recorded. Problems Name Problem SNOMED Code Status Onset Date Resolution Date Notes Provider Name and Address Organization Details Recorded Time Hypertensive disorder 53188667 Active 2022 JOSUE Soliman [facility] 09:20:49 Problem Notes None recorded. Procedures Surgical History Date Name Laterality Status Provider Name and Address Organization Details Recorded Time Hernia Repair completed LISA CONNOR PA - [facility] 02/23/2023 09:21:12 ligation of fallopian tube completed LISA CONNOR PA - [facility] 02/23/2023 09:21:17 removal of product of conception of ectopic completed LISA CONNOR PA - [facility] 02/23/2023 09:21:25 Imaging Results None recorded. Procedure Notes None recorded. Medical Equipment None Reported. Allergies No known drug allergies Medications Name Sig Start Date Stop Date Status Note LastModified by Organization Details LastModified Time amoxicillin 500 mg capsule Take 1 capsule 3 times a day by oral route for 10 days. 023 active Not Available Not Available Not Avai lable loratadine 10 mg tablet Take 1 tablet every day by oral route for 90 days. 023 active Not Available Not Available Not Avai lable losartan active Not Available Not Avai lable Not Available Vitals Date Recorded Systolic And Diastolic Provider Name and Address Organization Details Last Updated DateTime 02/23/2023 154/84 mm[Hg] JOSUE HERNÁNDEZ [address] [place], [address], [place] - [facility] 02/23/2023 10:00:51 Date Recorded Body height Body mass index (BMI) Body weight Respiratory rate Oxygen saturation Heart rate Body temperature Systolic And Diastolic Provider Name and Address Organization Details Last Updated DateTime 3 160.02 cm 31 kg/m2 44440.6 6 g 18 /min 98 % 78 /min 98.3 [degF] 167/83 mm[Hg] LISA Estrada [facility] 09:23:40 Social History Question Answer Notes LastModified by Naldo Details LastModified Time Tobacco Smoking Status Never Smoker JOSUE Soliman [facility] 02/23/2023 09:21:39 Have You Had Direct Contact, Or Contact During Intimacy, With Monkeypox Rash, Scabs, Or Body Fluids From A Person With Monkeypox? No Information not available 02/23/2023 Have You Recently Traveled Abroad? No Information not available 02/23/2023 Sex: Unknown Functional Status Question Answer Note LastModified by Naldo Details LastModified Time Do you use any illicit or recreational drugs? No Information not available 02/23/2023 Do you or have you ever used any other forms of tobacco or nicotine? No Information not available 02/23/2023 What is your level of alcohol consumption? Occasional Information not available 02/23/2023 Mental Status None recorded. Family History Relationship Description Onset Age of this Age Resolved Age Notes LastModified by Organization Details LastModified Time Father No current problems or disability Not available 01/28 09:21:29 Mother No current problems or disability Not available 01/28 09:21:29 Medical History No medical history recorded. Gynecological History Statement/Question Response Is there any chance of ? No Obstetrics History GPAL:G 0 P 0 0 0 0 Immunizations Vaccine Type Date Status Note Provider Nam e and Address Organization Details Recorded Time Influenza, MDCK, quadrivalent, PF 08/08/2020 completed JOSUE Soliman [facility] 02/23/2023 09:20:33 COVID-19, mRNA, LNP-S, PF, 30 mcg/0.3 mL dose 09/11/2021 completed LISA CONNOR null, [place] - [facility] 02/23/2023 09:20:33 COVID-19, mRNA, LNP-S, PF, 30 mcg/0.3 mL dose 10/03/2020 completed LISA CONNOR null, [place] - [facility] 02/23/2023 09:20:33 COVID-19, mRNA, LNP-S, PF, 30 mcg/0.3 mL dose 10/24/2020 completed LISA CONNOR null, PA - [facility] 02/23/2023 09:20:33 Tdap 06/01/2013 completed LISA CONNOR null, [place] - [facility] 02/23/2023 09:20:33 Influenza, split virus, trivalent, PF 06/01/2013 completed LISA CONNOR null, PA - [facility] 02/23/2023 09:20:33 Influenza, split virus, quadrivalent, PF 05/31/2021 completed LISA CONNOR null, PA - [facility] 02/23/2023 09:20:33 Past Encounters Encounter ID Performer Location Encounter Start Date Encounter Closed Date Diagnosis/Indication Diagnosis SNOMED-CT Code Diagnosis ICD10 Code Diagnosis IMO Codes Diagnosis Note [id number] [address] [place] [address] 06/16/2021 08:47:42 06/16/2021 10:32:50 [id number] [address] [place] [address] 02/19/2020 18:25:58 02/19/2020 19:00:18 [id number] [address] [place] [address] 04/12/2021 10:35:30 04/12/2021 12:04:15 [id number] JOSUE HERNÁNDEZ [address] [place] [address] 02/23/2023 08:19:08 02/23/2023 10:04:22 Acute pharyngitis [id number] J02.9 Based on your Presentati on, Exam, and Lab Testing you are being diagnosed with Pharyngiti s. Your Rapid Strep Test was Negative. Most likely your sore throat is being caused by a virus, post nasal drip, or silent acid reflux. I am going to prescribe you and antibiotic to cover this infection. Please be sure to complete the full course of this antibiotic to prevent antibiotic resistance . It is also important to complete this antibiotic because this infection is what causes Scarlet Fever/Rheu matic Heart Disease. Antibiotic s will typically take 4-5 days to start to work with symptom improvemen t. The following are my other recommenda tions to help with symptoms and is important for this diagnosis: 1. Do not share any food or drinks - strep is passed through direct saliva exchange (NOT IN THE AIR)2. Change your toothbrush in 3-4 days so that you don't re-infect yourself after you complete the antibiotic .3. Take Ibuprofen or Tylenol if you do not have any allergies to these medication s. If you take a blood thinner you should not take NSAIDS like Ibuprofen. These medication will help with the inflammati on in your respirator y tract which should help the cough. (I would alternate between Tylenol 650 mg and your Ibuprofen 600 mg every 4 hours)4. Do not take any Cold Medication s that have a Decongesta nt in it - this will dry out your throat and make the sore throat worse.5. Drinking Hot Tea with honey can help coat and soothe your throat.6. You would be considered contagious for the next 24-48 hours, or until fever resolves. I would be seen again if you develop any of the following symptoms.1 . Fever > 101.02. Stiff neck - where you can't turn your neck3. Trouble swallowing your saliva - drooling4. Swelling of a lymph node in your throat that is painful to touch5. Difficulty breathing6 . Severe Headache Thank you for using [facility] today, please feel free to contact our office if you have any questions or concerns. Health Concerns Section Related Observation LastModified by Organization Detai ls LastModified Time None Recorded Concern Status LastModified by Organization Details LastModified Time None Recorded Advance Directives Directive None Recorded Payers Insurance Date Sequence Insurance Name Policy Number Policy De La Cruz Covered Member ID De La Cruz Member ID Guarantor Name 02/23/2023 1 [facility] [employer] [facility] TYPE [facility] (H[facility] [id number] Brandi Eddy [id number] Brandi Eddy Notes Date Note Type Note Provider Name and Address Organization Details Recorded Time 02/23/2023 text/html Sore throatRepor glenn by PatientSore ThroatFor associated symptoms, patient reportssore throatandnausea (when she drinks luke warm water.)but reportsno sputum production,no shortness of breath,no wheezing,no sinus pain,no vomiting, andno hoarseness. For context, patient reportssick contact (work)but reportsnon-smoker. For source of patient information, patient reportsinformation obtained from patientandpatient arrived at urgent care ambulatory. For location, patient reportsthroat (bilateral). For severity, patient reportsmoderate. For quality, patient reportshurts to swallow. For onset/timing, patient reports2 days (yesterday morning in the am.).The patient did a COVID test and it was negative today at home. The patient has not taken anything OTC. The patient did not take her BP medications today yet because she hasn't eaten. the patient reports that she had strep a long time ago. JOSUE HERNÁNDEZ [address] [place], [address], [place] - [facility] 02/23/2023 10:07:22 OBGyn Episode No OBEpisode recorded.
--- OUTSIDE RECORDS SUMMARY | 2025-08-16 22:36 | XMS_ITS | Clinical Summary ---
Author Organization 175 [facility] Address [address] [place] [address] Phone Care Team Providers Care Parking Inspector Name Role Phone Gregg Mikala MELISSA Primary Care Provider [phone] Allergies Active Allergy Reactions Criticality Noted Date Comments Chlorthalidone Itching Low 12/27/2024 Diph,Pertuss(Acel),Tet Vac(Pf) Itching Low 12/27 Adacel Medications loratadine (CLARITIN) 10 mg tablet Take 1 tablet (10 mg total) by mouth 1 (one) time each day. Active losartan (COZAAR) 100 mg tablet Take 1 tablet (100 mg total) by mouth 1 (one) time each day. Active metFORMIN XR (GLUCOPHAGE-XR) 500 mg 24 hr tablet Take 1 tablet (500 mg total) by mouth 1 (one) time each day. Active norethindrone (AYGESTIN) 5 mg tablet Take 1 tablet (5 mg total) by mouth 1 (one) time each day. Active ergocalciferol (VITAMIN D-2) 1,250 mcg (50,000 unit) capsule Take 1 capsule (50,000 Units total) by mouth 1 (one) time per week. 4 each 06/10/2025 Active albuterol HFA (PROAIR HFA ; PROVENTIL HFA ; VENTOLIN HFA) 90 mcg/actuation inhaler 07/22/2025 Active Active Problems Problem Noted Date Diagnosed Date MS (multiple sclerosis) 08/02/2025 Encounters Date Type Department Care Team Description 08/02/2025 7:41 AM EST - 08/02/2025 11:59 PM EST [facility] [address] [address] MS (multiple sclerosis) (Primary Dx); Encounter for therapeutic drug monitoring Discharge Disposition: Home or Self Care 07/23/2025 Telephone [facility] [address] [phone] Mickey Esquivel MD 07/22/2025 12:15 PM EST Telemedicine [facility] [address] [phone] Mickey Esquivel MD Optic neuritis (Primary Dx); Multiple sclerosis; Migraine variant; High risk medication use 07/05/2025 7:48 AM EST - 07/05/2025 11:59 PM EST Hospital Encounter [facility] CT Scan [address] [place] [address] Optic neuritis; Multiple sclerosis Discharge Disposition: Home or Self Care 06/24/2025 5:12 PM EDT - 06/24/2025 11:59 PM EDT Hospital Encounter [facility] Xray [address] [place] [address] Optic neuritis Discharge Disposition: Home or Self Care 06/05/2025 1:00 PM EDT Office Visit [facility] [address] [phone] Mickey Esquivel MD Optic neuritis (Primary Dx); Multiple sclerosis 05/23/2025 Telephone [facility] [address] [phone] Belen Toabr PA 05/20/2025 6:52 AM EDT - 05/20/2025 11:59 PM EDT Hospital Encounter [facility] Interventional Radiology [address] [place] [address] Optic neuritis; Multiple sclerosis (CMS/HCC V24, CMS/HCC V28) Discharge Disposition: Home or Self Care from Last 3 Months Social History Tobacco Use Types Packs/Day Years Used Date Smoking Tobacco: Never Assessed Housing Instability Answer Date Recorde d Are you worried that in the next 2 months you may not have stable housing? No 07/22/2025 Food Access & Nutrition Answer Date Rec orded Do you have access to a vari ety of food including fruits and vegetables? Yes 07/22/2025 Access to Healthcare Answer Date Record ed Within the last 3 months, ho w many times did you visit the emergency department for your medical care? 0 07/22/2025 Health Literacy Answer Date Recorded How often do you need to hav e someone help you when you read instructions, pamphlets, or other written material from your doctor or pharmacy? Rarely 07/22/2025 Caregiver: How often do you need to have someone help you when you read instructions, pamphlets, or other written material from your doctor or pharmacy? Not on file 07/22/2025 Financial Risk Answer Date Recorded How hard is it for you to pa y for the very basics like food, housing, medical care, and air conditioning / heating? Somewhat hard 07/22/2025 Transportation Answer Date Recorded Has the lack of transportati on kept you from meetings, work, or from getting things needed for daily living? No Has the lack of transportati on kept you from medical appointments or from getting medications? No 07/22/2025 Social Isolation Answer Date Recorded How often do you feel lonely or isolated from th ose around you? Rarely 07/22/2025 Food Risk Answer Date Recorded Within the past 12 months we worried whether our food would run out before we got money to buy more. Never true 07/22/2025 Within the past 12 months th e food we bought just didn't last and we didn't have money to get more. Never true 07/22/2025 Dependent Care Answer Date Recorded Do you need help finding or paying for care for your loved ones. For example, child abuse worker or elderly care for an older adult? No 07/22/2025 Education Answer Date Recorded Do you think completing more education or training, like finishing a GED, going to college, or learning a trade, would be helpful for you? N/A 07/22/2025 Employment and Income Answer Date Recor ded During the last four weeks, have you been actively looking for work? No 07/22/2025 Living Situation Answer Date Recorded What is your living situation? Unrecognized valu e 07/22/2025 Comments Unknown Sex and Gender Information Value Date Recorded Sex Assigned at Not on file Legal Sex Female 8:53 AM EDT Gender Identity Not on file Sexual Orientation Not on file Last Filed Vital Signs Vital Sign Reading Time Taken Comments Blood Pressure 139/81 08/02/2025 1:10 PM EST Pulse 100 08/02/2025 1:10 PM EST Temperature 36.1 C (96.9 F) 08/02/2025 1:10 PM EST Respiratory Rate 18 08/02/2025 1:10 PM EST Oxygen Saturation 96% 08/02/2025 1:10 PM EST Inhaled Oxygen Concentration - - Weight 81.6 kg (180 lb) 06/05/2025 1:03 PM EDT Height 162.6 cm (5' 4 ) 06/05/2025 1:03 PM EDT Body Mass Index 30.9 06/05/2025 1:03 PM EDT Plan of Treatment Upcoming Encounters Date Type Department Care Team (Late st Contact Info) Description 08/19/2025 10:00 AM EST Appointment [facility] [address] [phone] Health Maintenance Due Date Last Done Comments Breast Cancer Screening 1982 Hepatitis B Vaccines (1 of 3 - 19+ 3-dose series) 2001 Cervical Cancer Screening: Pap Smear 2003 HPV Vaccines (1 - 3-dose SCDM series) 2009 DTaP,Tdap,and Td Vaccines (2 - Td or Tdap) 06/01/2023 06/01/2013 Cholesterol Screening (Lipid Panel) 12/21/2024 COVID-19 Vaccine ( season) 2025 09/11/2021, 10/24/2020, 10/03/2020 Social Influencers of Health Screening 07/22/2026 07/22/2025 Hypertension/CHF/CAD Annual BMP Blood Test 08/02/2026 08/02/2025, 03/18/2025, 01/14/2023, Additional history exists RSV Immunization Adult Patients (1 - 1-dose 75+ series) 2057 HIV Screening Completed 03/18/2025, 12/27/2024 Hepatitis C Screening Completed 03/18/2025 Influenza Vaccine Completed 06/01/2025, , 05/22/2023, Additional history exists Depression Screening Completed 07/22/2025 HIB Vaccines Aged Out No longer eligi ble based on patient's age to complete this topic Hepatitis A Vaccines Aged Out No long er eligible based on patient's age to complete this topic IPV Vaccines Aged Out No longer eligi ble based on patient's age to complete this topic MMR Vaccines Aged Out No longer eligi ble based on patient's age to complete this topic Meningococcal ACWY Vaccine Aged Out N o longer eligible based on patient's age to complete this topic Meningococcal B Vaccine Aged Out No l onger eligible based on patient's age to complete this topic Pneumococcal Vaccine: Pediatrics (0 to 5 Years) and At-Risk Patients (6 to 49 Years) Aged Out No longer eligible based on patient's age to complete this topic RSV Immunization Patients Under 20 months Aged Out No longer eligible based on patient's age to complete this topic Varicella Vaccines Aged Out No longer eligible based on patient's age to complete this topic Procedures Procedure Name Priority Date/Time Associated Diagnosis Comments CBC WITH AUTO DIFFERENTIAL Routine 08/02/2025 8:01 AM EST MS (multiple sclerosis) Encounter for therapeutic drug monitoring HEPATIC FUNCTION PANEL Routine 8:01 AM EST MS (multiple sclerosis) Encounter for therapeutic drug monitoring CBC AND DIFFERENTIAL Routine 08/02/2025 8:01 AM EST MS (multiple sclerosis) Encounter for therapeutic drug monitoring CREATININE, SERUM Routine 08/02/2025 8:0 1 AM EST MS (multiple sclerosis) Encounter for therapeutic drug monitoring BUN Routine 08/02/2025 8:01 AM EST MS (multiple sclerosis) Encounter for therapeutic drug monitoring CT CHEST W CONTRAST Routine 07/05/2025 8 :15 AM EST Optic neuritis Multiple sclerosis XR CHEST 2 VIEWS Routine 06/24/2025 5:53 PM EDT Optic neuritis NEUROMYELITIS OPTICA, IGG AQUAPORIN-4 WITH REFLEX TO TITER Routine 06/05/2025 2:32 PM EDT ..ACETYLCHOLINE RECEPTOR MODULATING ANTIBODY Routine 06/05/2025 2:32 PM EDT AUTOIMMUNE NEUROLOGY ANTIBODY COMPREHENSIVE PANEL WITH REFLEX Routine 06/05/2025 2:32 PM EDT RAPID PLASMA REAGIN WITH REFLEX TO TITER Routine 06/05/2025 2:32 PM EDT MYELIN OLIGODENDROCYTE GLYCOPROTEIN ANTIBODY WITH REFLEX TO TITER Routine 06/05/2025 2:32 PM EDT INTERFERON GAMMA FOR TB, WHOLE BLOOD Routine 06/05/2025 2:32 PM EDT VITAMIN D 25 HYDROXY Routine 06/05/2025 2:32 PM EDT IR LUMBAR PUNCTURE DIAGNOSTIC Routine 05/20/2025 9:04 AM EDT Optic neuritis Multiple sclerosis (CMS/HCC V24, CMS/HCC V28) CSF CELL COUNT WITH REFLEX TO DIFFERENTIAL Routine 05/20/2025 9:02 AM EDT Optic neuritis Multiple sclerosis (CMS/HCC V24, CMS/HCC V28) MYELIN BASIC PROTEIN, CSF Routine 05/20/2025 8:45 AM EDT Optic neuritis Multiple sclerosis (CMS/HCC V24, CMS/HCC V28) IGG SYNTHESIS RATE AND INDEX, CSF Routine 05/20/2025 8:45 AM EDT Optic neuritis Multiple sclerosis (CMS/HCC V24, CMS/HCC V28) MISCELLANEOUS LAB TEST Routine 8:45 AM EDT Optic neuritis Multiple sclerosis (CMS/HCC V24, CMS/HCC V28) MISCELLANEOUS LAB TEST Routine 8:45 AM EDT Optic neuritis Multiple sclerosis (CMS/HCC V24, CMS/HCC V28) MYELIN BASIC PROTEIN, CSF Routine 05/20/2025 8:45 AM EDT Optic neuritis Multiple sclerosis (CMS/HCC V24, CMS/HCC V28) PROTEIN, CSF Routine 05/20/2025 8:45 AM EDT Optic neuritis Multiple sclerosis (CMS/HCC V24, CMS/HCC V28) POC , URINE DIAGNOSTIC STAT 05/20/2025 8:10 AM EDT OLIGOCLONAL BANDING Routine 05/20/2025 7 :31 AM EDT Optic neuritis Multiple sclerosis (CMS/HCC V24, CMS/HCC V28) HEPATITIS C ANTIBODY Routine 03/18/2025 2:26 PM EDT Optic neuritis Multiple sclerosis (CMS/HCC V24, CMS/HCC V28) HIV 1, 2 ANTIBODY, P24 ANTIGEN WITH REFLEX TO DIFFERENTIATION Routine 03/18/2025 2:26 PM EDT Optic neuritis Multiple sclerosis (CMS/HCC V24, CMS/HCC V28) from Last 3 Months or Most Recently Relevant to Health Maintenance Results * CBC auto differential (08/02/2025 8:01 AM EST) WBC 6.1 4.8 - 10.8 K/mcL LAB HEMETOLOGY METHOD 08/02/2025 10:35 AM EST [facility] RBC 4.30 3.80 - 4.80 M/mcL LAB HEMETOLOGY METHOD 08/02/2025 10:35 AM [facility] Hemoglobin 13.0 11.5 - 16.0 g/dL LAB HEMETOLOGY METHOD 08/02/2025 10:35 AM [facility] Hematocrit 40.3 35.0 - 47.0 % LAB HEMETOLOGY METHOD 08/02/2025 10:35 AM [facility] MCV 93.1 79.0 - 98.0 FL LAB HEMETOLOGY METHOD 08/02/2025 10:35 AM [facility] MCH 30.0 27.0 - 32.0 pcg LAB HEMETOLOGY METHOD 08/02/2025 10:35 AM [facility] MCHC 32.3 32.0 - 37.0 g/dL LAB HEMETOLOGY METHOD 08/02/2025 10:35 AM [facility] RDW 12.4 11.0 - 15.0 % LAB HEMETOLOGY METHOD 08/02/2025 10:35 AM [facility] Platelets 293 130 - 400 K/mcL LAB HEMETOLOGY METHOD 08/02/2025 10:35 AM [facility] MPV 10.1 7.0 - 11.0 FL LAB HEMETOLOGY METHOD 08/02/2025 10:35 AM [facility] NRBC 0.0 <1.0 % LAB HEMETOLOGY METHOD 08/02/2025 10:35 AM [facility] NRBC Absolute 0.00 <0.10 K/mcL LAB HEMETOLOGY METHOD 08/02/2025 10:35 AM [facility] Neutrophils Relative 57.1 % LAB HEMETOLOGY METHOD 08/02/2025 10:35 AM [facility] Lymphocytes Relative 32.6 % LAB HEMETOLOGY METHOD 08/02/2025 10:35 AM [facility] Monocytes Relative 5.7 % LAB HEMETOLOGY METHOD 08/02/2025 10:35 AM [facility] Eosinophils Relative 3.7 % LAB HEMETOLOGY METHOD 08/02/2025 10:35 AM [facility] Basophils Relative 0.7 % LAB HEMETOLOGY METHOD 08/02/2025 10:35 AM [facility] Immature Granulocytes Relative 0.2 % LAB HEMETOLOGY METHOD 08/02/2025 10:35 AM [facility] Neutrophils Absolute 3.51 1.50 - 7.00 K/mcL LAB HEMETOLOGY METHOD 08/02/2025 10:35 AM [facility] Lymphocytes Absolute 2.00 1.00 - 5.00 K/mcL LAB HEMETOLOGY METHOD 08/02/2025 10:35 AM [facility] Monocytes Absolute 0.35 0.20 - 1.00 K/mcL LAB HEMETOLOGY METHOD 08/02/2025 10:35 AM [facility] Eosinophils Absolute 0.23 0.00 - 0.50 K/mcL LAB HEMETOLOGY METHOD 08/02/2025 10:35 AM [facility] Basophils Absolute 0.04 0.00 - 0.20 K/mcL LAB HEMETOLOGY METHOD 08/02/2025 10:35 AM [facility] Immature Granulocytes Absolute 0.01 0.00 - 0.03 K/mcL LAB HEMETOLOGY METHOD 08/02/2025 10:35 AM [facility] Blood Venous blood specimen / Unknown Venipuncture / Unknown 08/02/2025 8:01 AM EST 08/02/2025 8:01 AM EST Belen SALAS LAB BLOOD ORDERABLES Final R esult [facility] [address] [place] [address], * Creatinine (08/02/2025 8:01 AM EST) Creatinine 0.79 0.50 - 1.10 mg/dL 08/02/2025 11:07 AM EST [facility] eGFR 95 >=60 mL/min/1. 73m2 08/02/2025 11:07 AM [facility] Comment:Calculation based on the Chronic Kidney Disease Epidemiology Collaboration (CKD-EPI) equation refit without adjustment for race. Blood Venous blood specimen / Unknown Venipuncture / Unknown 08/02/2025 8:01 AM EST 08/02/2025 8:01 AM EST Belen L Panasci PA LAB BLOOD ORDERABLES Final R esult Performing Organization Address City/[facility]/ZIP Co de Phone Number [facility] [address] [place] [address], * BUN (08/02/2025 8:01 AM EST) BUN 9 5 - 25 mg/dL 08/02/2025 11:07 AM [facility] Blood Venous blood specimen / Unknown Venipuncture / Unknown 08/02/2025 8:01 AM EST 08/02/2025 8:[address] [facility] BLOOD ORDERABLES Final R esult Performing Organization Address City/[facility]/ZIP Co de Phone Number [facility] [address] [place] [address], [place] [phone] * Hepatic function panel (08/02/2025 8:01 AM EST) Total Protein 6.6 6.0 - 8.0 g/dL 08/02/2025 11:07 AM [facility] Albumin 4.5 3.2 - 5.0 g/dL 08/02/2025 11:07 AM [facility] Total Bilirubin 0.4 0.0 - 1.4 mg/dL 08/02/2025 11:07 AM [facility] Bilirubin, Direct 0.1 0.0 - 0.3 mg/dL 08/02/2025 11:07 AM EST [facility] Bilirubin, Indirect 0.3 0.0 - 1.1 mg/dL 08/02/2025 11:07 AM EST [facility] ALT (SGPT) 40 10 - 60 unit/L 08/02/2025 11:07 AM [facility] AST (SGOT) 28 10 - 42 unit/L 08/02/2025 11:07 AM EST [facility] Alkaline Phosphatase 67 42 - 121 unit/L 08/02/2025 11:07 AM [facility] Blood Venous blood specimen / Unknown Venipuncture / Unknown 08/02/2025 8:01 AM EST 08/02/2025 8:01 AM EST Belen SALAS LAB BLOOD ORDERABLES Final R esult [facility] [address] [place] [address], [place] [phone] * CT Chest w Contrast (07/05/2025 8:15 AM EST) Anatomical Region Laterality Modality Body Computed Tomogra phy 07/12/2025 8:05 AM EST Impressions 07/12/2025 9:24 AM EST No suspicious mass or nodule. No significant interstitial lung abnormality. No enlarged lymph nodes. -------- FINAL REPORT -------- Dictated By: Joshua Posadas Dictated Date: 07/12/2025 08:05 ET Assigned Physician: Joshua Posadas Reviewed and Electronically Signed By: Joshua Posadas Signed Date: 07/12/2025 09:24 ET Workstation ID: [id number] Transcribed By: Self Edit Transcribed Date: 07/12/2025 08:05 ET Narrative 07/12/2025 9:24 AM EST EXAMINATION: CT CHEST WITH CONTRAST CLINICAL INFORMATION: Optic neuritis. Multiple sclerosis. Hilar adenopathy. COMPARISON: None TECHNIQUE: Multidetector CT. Examination of the chest. Examination of the chest following the IV administration of nonionic contrast. Reformatting in the coronal and sagittal planes. DLP: 257 mGy-cm Dose optimization was performed including the use of low-dose iterative reconstruction technique with automatic exposure control based on patient size. Type of contrast: ISOVUE 370 Volume of IV contrast: 90 mL Volume of contrast discarded: 0 mL FINDINGS: LUNG: There is no abnormality of the trachea or mainstem bronchi. No suspicious mass or nodule. There is a calcified granuloma in the periphery of the left upper lobe laterally. There are no significant interstitial lung abnormalities. There are a few dependent lung opacities which may be atelectasis. There is no honeycomb formation. MEDIASTINUM: There are no enlarged mediastinal or hilar lymph nodes. No suspicious abnormality of the esophagus. CARDIAC: No cardiac mass. No pericardial fluid or significant thickening. CORONARY CALCIFICATION: No coronary calcifications demonstrated. VASCULAR: There is no thoracic aortic aneurysm. The main pulmonary artery is normal caliber. PLEURA: There is no pleural fluid or pneumothorax. AXILLA/CHEST WALL: There are no enlarged axillary lymph nodes. No chest wall mass demonstrated. VISUALIZED UPPER ABDOMEN: No suspicious abnormality on limited assessment of the visualized upper abdomen. I suspect fatty change in the liver. MUSCULOSKELETAL: No suspicious focal bony lesion. Procedure Note Joshua Posadas MD - 07/12/2025 EXAMINATION: CT CHEST WITH CONTRAST CLINICAL INFORMATION: Optic neuritis. Multiple sclerosis. Hilar adenopathy. COMPARISON: None TECHNIQUE: Multidetector CT. Examination of the chest. Examination of the chest following the IV administration of nonioniccontrast. Reformatting in the coronal and sagittal planes. DLP: 257 mGy-cm Dose optimization was performed including the use of low-dose iterativereconstruction technique with automatic exposure control based on patientsize. Type of contrast: ISOVUE 370 Volume of IV contrast: 90 mL Volume of contrast discarded: 0 mL FINDINGS: LUNG: There is no abnormality of the trachea or mainstem bronchi. No suspicious mass or nodule. There is a calcified granuloma in the periphery of the left upper lobelaterally. There are no significant interstitial lung abnormalities. There are a few dependent lung opacities which may be atelectasis. Thereis no honeycomb formation. MEDIASTINUM: There are no enlarged mediastinal or hilar lymph nodes. Nosuspicious abnormality of the esophagus. CARDIAC: No cardiac mass. No pericardial fluid or significantthickening. CORONARY CALCIFICATION: No coronary calcifications demonstrated. VASCULAR: There is no thoracic aortic aneurysm. The main pulmonary arteryis normal caliber. PLEURA: There is no pleural fluid or pneumothorax. AXILLA/CHEST WALL: There are no enlarged axillary lymph nodes. No chestwall mass demonstrated. VISUALIZED UPPER ABDOMEN: No suspicious abnormality on limited assessmentof the visualized upper abdomen. I suspect fatty change in the liver. MUSCULOSKELETAL: No suspicious focal bony lesion. IMPRESSION: No suspicious mass or nodule. No significant interstitial lungabnormality. No enlarged lymph nodes. -------- FINAL REPORT -------- Dictated By: Joshua Posadas Dictated Date: 07/12/2025 08:05 ET Assigned Physician: Joshua Posadas Reviewed and Electronically Signed By: Joshua Posadas Signed Date: 07/12/2025 09:24 ET Workstation ID: [id number] Transcribed By: Self Edit Transcribed Date: 07/12/2025 08:05 ET Mickey Esquivel MD IMG CT PROCEDURES Final Result * XR Chest 2 Views (06/24/2025 5:53 PM EDT) Anatomical Region Laterality Modality Body Radiographic Dilia ging 06/25/2025 7:11 AM EDT Impressions 06/25/2025 7:12 AM EDT No acute chest abnormality. No evidence of adenopathy. -------- FINAL REPORT -------- Dictated By: Joshua Posadas Dictated Date: 06/25/2025 07:11 ET Assigned Physician: Joshua Posadas Reviewed and Electronically Signed By: Joshua Posadas Signed Date: 06/25/2025 07:12 ET Workstation ID: [id number] Transcribed By: Self Edit Transcribed Date: 06/25/2025 07:11 ET Narrative 06/25/2025 7:12 AM EDT EXAMINATION: CHEST CLINICAL INFORMATION: Optic neuritis. Clinical concern first our colloid. Evaluate for adenopathy COMPARISON: None. TECHNIQUE: 2 views of the chest FINDINGS: Cardiac size top normal. No mediastinal mass. No convincing hilar adenopathy. The vasculature, lungs and visualized pleural margins are within normal limits. No evidence of hepatosplenomegaly or suspicious focal bony lesion. Procedure Note Joshua Posadas MD - 06/25/2025 EXAMINATION: CHEST CLINICAL INFORMATION: Optic neuritis. Clinical concern first our colloid. Evaluate foradenopathy COMPARISON: None. TECHNIQUE: 2 views of the chest FINDINGS: Cardiac size top normal. No mediastinal mass. No convincing hilaradenopathy. The vasculature, lungs and visualized pleural margins arewithin normal limits. No evidence of hepatosplenomegaly or suspicious focal bony lesion. IMPRESSION: No acute chest abnormality. No evidence of adenopathy. -------- FINAL REPORT -------- Dictated By: Joshua Posadas Dictated Date: 06/25/2025 07:11 ET Assigned Physician: Joshua Posadas Reviewed and Electronically Signed By: Joshua Posadas Signed Date: 06/25/2025 07:12 ET Workstation ID: [id number] Transcribed By: Self Edit Transcribed Date: 06/25/2025 07:11 ET Mickey Esquivel MD IMG XR PROCEDURES Final Result * Neuromyelitis optica, IgG aquaporin-4 with reflex to titer (06/05/2025 2:32 PM EDT) Aquaporin 4 Ab, CBA, Serum TNP [facility], Comment: TEST NOT PERFORMED Duplicate test. 06/05/2025 2:32 PM EDT 06/05/2025 2:40 PM EDT us Mickey Esquivel MD LAB BLOOD ORDERABLES Fin al Result [facility] ([facility]) [facility], [address] [place] [address] * Autoimmune neurology antibody comprehensive panel with reflex (06/05/2025 2:32 PM EDT) Paraneoplastic Ab Interpretation SEE NOTE [facility], Comment: Fluorescence observed on monkey cerebellum substrate. A known pattern associated with specific analytes in this panel was not observed. Staining of HEp-2 cells suggests antinuclear and/or anticytoplasmic antibody(ies) are present. Consider formal RYAN by indirect immunofluorescence (IFA) on HEp-2 cell substrate if not already performed. Certain non-neuronal specific autoantibodies associated with positive RYAN have been associated with neurological syndromes, e.g. ribosomal P antibody. ANNA1 (Hu) Ab NEGATIVE NEGATIVE [facility], ANNA2 (Ri) Ab NEGATIVE NEGATIVE [facility], HERLINDA 3 Ab NEGATIVE NEGATIVE [facility], PCA1 (Yo) Ab NEGATIVE NEGATIVE [facility], PCA2 Ab NEGATIVE NEGATIVE [facility] /[facility], HOSPITAL RECEIVING CLERK-Tr (DNER) Ab NEGATIVE NEGATIVE [facility] /[facility], AGNA/SOX1 Ab NEGATIVE NEGATIVE [facility] /[facility], Amphiphysin Ab NEGATIVE NEGATIVE [facility] /[facility], CRMP5/CV2 Ab NEGATIVE NEGATIVE [facility] /[facility], [id number] Ab, IFA NEGATIVE NEGATIVE [facility] /[facility], MA2/TA Ab, IFA NEGATIVE NEGATIVE [facility] /[facility], Myelin Ab, IFA NEGATIVE NEGATIVE [facility] /[facility], Aquaporin 4 (NMO) Ab, IFA NEGATIVE NEGATIVE [facility] /[facility], Comment: The absence of detectable anti-neuronal autoantibodies in this test does not exclude an idiopathic or paraneoplastic autoimmune neurological disorder. Additional testing may be indicated. Testing using both CSF and serum increases sensitivity for detection. For additional information, please refer to https://www.Fliplingo.Regalii/lks696 (This link is being provided for informational/educational purposes only.) This test was developed and its analytical performance characteristics have been determined by [facility]. It has not been cleared or approved by the FDA. This assay has been validated pursuant to the CLIA regulations and is used for clinical purposes. NMDAR1 Ab, CBA NEGATIVE NEGATIVE [facility] /[facility], AMPAR1 Ab, CBA NEGATIVE NEGATIVE [facility] /[facility], AMPAR2 Ab, CBA NEGATIVE NEGATIVE [facility] /[facility], GABABR Ab, CBA NEGATIVE NEGATIVE [facility] /[facility], LGI1 Ab, CBA NEGATIVE NEGATIVE [facility] /[place], Caspr2 Ab, CBA NEGATIVE NEGATIVE [facility] /[facility], Comment: This test was developed and its analytical performance characteristics have been determined by [facility]. It has not been cleared or approved by the FDA. This assay has been validated pursuant to the CLIA regulations and is used for clinical purposes. DPPX Receptor Ab, CBA IFA NEGATIVE NEGATIVE [facility], Comment: This test was developed and its analytical performance characteristics have been determined by [facility]. It has not been cleared or approved by the FDA. This assay has been validated pursuant to the CLIA regulations and is used for clinical purposes. ANNA1 (Hu) Ab, LB <11 <11 [facility], ANNA2 (Ri) Ab, LB <11 <11 [facility], PCA1 (Yo) Ab, LB <11 <[address] [facility], Ma2/Ta Ab, Lb <11 <11 [facility], CRMP5/CV2 Ab, LB <11 <[address] [facility], Amphiphysin Ab, LB <11 <11 [facility] /[facility], GAD65 Ab, LB <11 <11 [facility] /[facility], Recoverin Ab, LB <11 <[address] [facility] /[facility], Agna/Sox1 Ab, Lb <11 <[address] [facility] /[facility], Titin Ab LB <11 <11 [facility] /[facility], Zic4 Ab, Lb <11 <11 [facility] /[facility], retail maintenance technician Tr (Dner) Ab, Lb <11 <11 SI [facility] /[facility], Comment: This test was developed and its analytical performance characteristics have been determined by [facility]. It has not been cleared or approved by the FDA. This assay has been validated pursuant to the CLIA regulations and is used for clinical purposes. Striated Muscle Ab Screen NEGATIVE NEGATIVE [facility] /[facility], Comment: This test was developed and its analytical performance characteristics have been determined by [facility]. It has not been cleared or approved by the FDA. This assay has been validated pursuant to the CLIA regulations and is used for clinical purposes. Voltage-gated Calcium Channel (VGCC) Ab <30 <30 pmol/L [facility] /[facility], Voltage Gated Potassium Channel (VGKC) Ab <80 <80 pmol/L [facility] /[facility], Comment: This test was developed and its analytical performance characteristics have been determined by [facility]. It has not been cleared or approved by the FDA. This assay has been validated pursuant to the CLIA regulations and is used for clinical purposes. Acetylcholine Receptor Ganglionic (Alpha 3) Ab <55 <55 pmol/L [facility] /[facility], Comment: Reference Ranges for Acetylcholine Receptor Ganglionic Antibody: Negative: <55 pmol/L Borderline: 55-160 pmol/L Positive: >160 pmol/L This test was developed and its analytical performance characteristics have been determined by [facility]. It has not been cleared or approved by the FDA. This assay has been validated pursuant to the CLIA regulations and is used for clinical purposes. Voltage Gated Calcium Channel (VGCC) Type N Ab <54 <54 pmol/L [facility] /[facility], Comment: This test was developed and its analytical performance characteristics have been determined by [facility]. It has not been cleared or approved by the FDA. This assay has been validated pursuant to the CLIA regulations and is used for clinical purposes. Acetylcholine Receptor Binding Antibody <0.30 nmol/L [facility] /[facility], Comment: Reference Ranges for Acetylcholine Receptor Binding Antibody: Negative: < or =0.30 nmol/L Equivocal: 0.31-0.49 nmol/L Positive: > or =0.50 nmol/L 06/05/2025 2:32 PM EDT 06/05/2025 2:40 PM EDT us Mickey Esquivel MD LAB BLOOD ORDERABLES Fin al Result Performing Organization Address [facility] de Phone Number [facility], [address] [place] [address] * Myelin oligodendrocyte glycoprotein antibody with reflex to titer (06/05/2025 2:32 PM EDT) Myelin Oligodendrocyte Glycoprotein (MOG) Ab NEGATIVE NEGATIVE [facility]/ [facility], Comment: This test was developed and its analytical performance characteristics have been determined by [facility]. It has not been cleared or approved by the FDA. This assay has been validated pursuant to the CLIA regulations and is used for clinical purposes. 06/05/2025 2:32 PM EDT 06/05/2025 2:40 PM EDT us Mickey Esquivel MD LAB BLOOD ORDERABLES Fin al Result Performing Organization Address [facility] Co de Phone Number [facility], [address] [place] [address] * Acetylcholine receptor modulating antibody (06/05/2025 2:32 PM EDT) Pathologist [facility] Acetylcholine Receptor Modulating Antibody 16 % Inhibition [facility], Comment: Reference Range: <32% INHIBITION This test was developed and its analytical performance characteristics have been determined by [facility]. It has not been cleared or approved by the FDA. This assay has been validated pursuant to the CLIA regulations and is used for clinical purposes. 06/05/2025 2:32 PM EDT 06/05/2025 2:40 PM EDT Mickey Esquivel MD LAB BLOOD ORDERABLES Fin al Result Performing Organization Address City/[facility]/ZIP Co de Phone Number [facility], [address] [place] [address] * Rapid plasma reagin with reflex to titer (06/05/2025 2:32 PM EDT) Pathologist [facility] RPR (Monitor) W/Refl Titer NON-REACT EDDIE NON-REACT EDDIE [facility] [place] [facility] 06/05/2025 2:32 PM EDT 06/05/2025 2:40 PM EDT Mickey Esquivel MD LAB BLOOD ORDERABLES Fin al Result Performing Organization Address City/[facility]/ZIP Co de Phone Number [employer] [employer] [facility] [place] [facility] [address] [place] [phone] * Interferon gamma for TB, whole blood (06/05/2025 2:32 PM EDT) Pathologist [facility] TB Quantiferon Plus NEGATIVE NEGATIVE [facility] [place] [facility] Comment: Negative test result. M. tuberculosis complex infection unlikely. Nil 0.02 IU/mL [facility] [place] [facility] Mitogen-Nil 8.27 IU/mL [facility] Antigen-Nil 0.05 IU/mL [facility] [employer] [place] [facility] TB2 Antigen-Nil 0.05 IU/mL [facility] [employer] [place] [facility] Comment: The Nil tube value reflects the background interferon gamma immune response of the patient's blood sample. This value has been subtracted from the patient's displayed TB and Mitogen results. Lower than expected results with the Mitogen tube prevent false-negative Quantiferon readings by detecting a patient with a potential immune suppressive condition and/or suboptimal pre-analytical specimen handling. The TB1 Antigen tube is coated with the M. tuberculosis-specific antigens designed to elicit responses from TB antigen primed CD4+ helper T-lymphocytes. The TB2 Antigen tube is coated with the M. tuberculosis-specific antigens designed to elicit responses from TB antigen primed CD4+ helper and CD8+ cytotoxic T-lymphocytes. For additional information, please refer to https://education.EdeniQ/faq/ZTV542 (This link is being provided for informational/ educational purposes only.) 06/05/2025 2:32 PM EDT 06/05/2025 2:40 PM EDT Mickey Esquivel MD LAB BLOOD ORDERABLES Fin al Result [facility] [place] [facility] [address] [place] [phone] * (ABNORMAL) Vitamin D 25 hydroxy (06/05/2025 2:32 PM EDT) Vitamin D 25-Hydroxy Level 15(L) 30 - 100 ng/mL [facility] [place] [facility] Comment: Vitamin D Status 25-OH Vitamin D: Deficiency: <20 ng/mL Insufficiency: 20 - 29 ng/mL Optimal: > or = 30 ng/mL For 25-OH Vitamin D testing on patients on D2-supplementation and patients for whom quantitation of D2 and D3 fractions is required, the Quest[facility]ureD(TM) 25-OH VIT D, (D2,D3), LC/MS/MS is recommended: order code 45016 (patients >2yrs). See Note 1 Note 1 For additional information, please refer to http://education.SpamLion.Regalii/faq/SSE791 (This link is being provided for informational/ educational purposes only.) 06/05/2025 2:32 PM EDT 06/05/2025 2:40 PM EDT Mickey Esquivel MD LAB BLOOD ORDERABLES Fin al Result [facility] [address] [place] [phone] * IR Lumbar Puncture Diagnostic w Fluoro/CT (05/20/2025 9:04 AM EDT) Anatomical Region Laterality Modality Spine, L-spine N/A Interventional R adiology 05/20/2025 3:23 PM EDT Impressions 05/20/2025 3:24 PM EDT Fluoroscopic-guided lumbar puncture. -------- FINAL REPORT -------- Dictated By: Holley Whelan Dictated Date: 05/20/2025 15:23 ET Assigned Physician: Holley Whelan Reviewed and Electronically Signed By: Holley Whelan Signed Date: 05/20/2025 15:24 ET Workstation ID: [id number] Transcribed By: Self Edit Transcribed Date: 05/20/2025 15:23 ET Narrative 05/20/2025 3:24 PM EDT INDICATION: Optic neuritis, evaluation for multiple sclerosis TECHNIQUE: Written informed consent obtained. Patient placed in the left lateral decubitus position on the angiographic table and lower lumbar spine draped and prepped in usual sterile fashion. 6 cc of 1% buffered lidocaine utilized as local anesthetic. Sedation: Moderate intravenous sedation was initiated and maintained for 13 minutes while the patient was independently monitored by the radiology nurse under the supervision of the interventional radiologist. A total of 1.5 mg of Versed and 75 mcg of fentanyl administered during the procedure. Under fluoroscopic guidance 20 gauge spinal needle advanced into the thecal sac at the L4-L5 level. Clear CSF noted from the needle hub. Approximately 18 mL of CSF removed and sent for evaluation as ordered. Opening pressure 20 centimeters of water with closing pressure 14 centimeters of water. Needle removed and bandage applied. The patient tolerated the procedure well and left the department in stable condition without immediate complications. FINDINGS: Needle access at the L4-L5. Total patient dose (air kerma): 23 mGy Procedure Note Holley Whelan MD - 05/20/2025 INDICATION: Optic neuritis, evaluation for multiple sclerosis TECHNIQUE: Written informed consent obtained. Patient placed in the left lateral decubitus position on the angiographictable and lower lumbar spine draped and prepped in usual sterile fashion. 6 cc of 1% buffered lidocaine utilized as local anesthetic. Sedation: Moderate intravenous sedation was initiated and maintained for13 minutes while the patient was independently monitored by the radiologynurse under the supervision of the interventional radiologist. A total of1.5 mg of Versed and 75 mcg of fentanyl administered during theprocedure. Under fluoroscopic guidance 20 gauge spinal needle advanced into thethecal sac at the L4-L5 level. Clear CSF noted from the needle hub.Approximately 18 mL of CSF removed and sent for evaluation as ordered.Opening pressure 20 centimeters of water with closing pressure 14centimeters of water. Needle removed and bandage applied. The patienttolerated the procedure well and left the department in stable conditionwithout immediate complications. FINDINGS: Needle access at the L4-L5. Total patient dose (air kerma): 23 mGy IMPRESSION: Fluoroscopic-guided lumbar puncture. -------- FINAL REPORT -------- Dictated By: Holley Whelan Dictated Date: 05/20/2025 15:23 ET Assigned Physician: Holley Whelan Reviewed and Electronically Signed By: Holley Whelan Signed Date: 05/20/2025 15:24 ET Workstation ID: [id number] Transcribed By: Self Edit Transcribed Date: 05/20/2025 15:23 ET Mickey Esquivel MD IMG IR PROCEDURES Final Result * CSF cell count with reflex to differential (05/20/2025 9:02 AM EDT) Total Nucleated Cells, CSF 1 0 - 4 /mm3 05/20/2025 10:29 AM EDT [facility] Comment:Corrected result: Pr eviously reported as 0 /mm3 on 05/20/2025 at 1016 EDT. RBC, CSF 0 0 - 10 /mm3 05/20/2025 10:29 AM EDT [facility] Color, CSF Colorless 05/20/2025 10:29 AM EDT [facility] Appearance, CSF Clear Clear 05/20/2025 10:29 AM EDT [facility] Tube Number, CSF 3 05/20/2025 10:29 AM EDT [facility] Cerebrospinal Fluid Lumbar subarachnoid space / Unknown Non-blood Collection / Unknown 05/20/2025 9:02 AM EDT 05/20/2025 9:10 AM EDT Mickey Esquivel MD LAB BODY FLUIDS AND STOO LS ORDERABLES Edited Result - Final [facility] [address] [place] [address], * IgG synthesis rate and index, CSF (05/20/2025 8:45 AM EDT) Pathologist [facility] Immunoglobulin G (IgG) CSF Quantitative 3.0 0.0 - 6.7 mg/dL 05/22/2025 2:05 PM EDT [facility] Albumin, CSF 23 8 - 37 mg/dL 05/22/2025 2:05 PM EDT [facility] Immunoglobulin G, Qn, Serum 1033 586 - 1602 mg/dL 05/22/2025 2:05 PM EDT [facility] Albumin 4.7 3.9 - 4.9 g/dL 05/22/2025 2:05 PM EDT [facility] IgG/Alb Ratio, CSF 0.13 0.00 - 0.25 05/22/2025 2:05 PM EDT [facility] CSF IgG Index 0.6 0.0 - 0.7 05/22/2025 2:05 PM EDT [facility] IgG Synthesis Rate CSF -.2 -9.9 TO +3.3 mg/day 05/22/2025 2:05 PM EDT [facility] CSF/Serum Alb. Index 5 0 - 8 05/22/2025 2:05 PM EDT [facility] Comment: Relationship to blood-brain barrier: Consistent with an intact barrier <9 Slight impairment 9 - 14 Moderate impairment 14 - 30 Severe impairment 30 - 100 Complete breakdown >100 Cerebrospinal Fluid Lumbar subarachnoid space / Unknown Non-blood Collection / Unknown 05/20/2025 8:45 AM EDT 05/20/2025 9:11 AM EDT Narrative [facility] - 05/22/2025 2:05 PM EDT Performed at: [address] [id number] Bilingual Administrative Assistant: Justin Navarro MD, Phone: [phone] Performed at: [address] [id number] Bilingual Administrative Assistant: Erinn Juarez MD, Phone: [phone] Mickey Esquivel MD LAB BODY FLUIDS AND STOO LS ORDERABLES Final Result [facility] * MYLEIN BASIC PROTIEN - Miscellaneous Test (05/20/2025 8:45 AM EDT) Only the most recent of2 resultswithin the time period is included. Miscellaneous Test COMMENT 2024 1:05 AM EDT [facility] Cerebrospinal Fluid Non-blood Collection / Unknown 05/20/2025 8:45 AM EDT 05/20/2025 9:11 AM EDT Narrative [facility] - 05/23/2025 1:05 AM EDT Performed At: [address] [place] [id number] Ramon Anderson MD Ph:[phone] Performed At: [address] [place], [address] [place] [id number] Sai Riley MD Ph:[phone] Mickey Esquivel MD LAB BLOOD ORDERABLES Fin al Result [facility] * (ABNORMAL) Protein, CSF (05/20/2025 8:45 AM EDT) Protein, CSF 53(H) 15 - 45 mg/dL LAB CHEMISTRY METHOD 05/20/2025 10:28 AM EDT [facility] Cerebrospinal Fluid Lumbar subarachnoid space / Unknown Non-blood Collection / Unknown 05/20/2025 8:45 AM EDT 05/20/2025 9:12 AM EDT us Mickey Esquivel MD LAB BODY FLUIDS AND STOO LS ORDERABLES Final Result Performing Organization Address [facility]/ZIP Co de Phone Number [facility] [address] [place] [address], [place] [phone] * (ABNORMAL) Myelin basic protein, CSF (05/20/2025 8:45 AM EDT) Only the most recent of2 resultswithin the time period is included. Myelin Basic Protein, CSF 5.9(H) 0.0 - 3.7 ng/mL 05/23/2025 1:05 AM EDT [facility] Cerebrospinal Fluid Lumbar subarachnoid space / Unknown Non-blood Collection / Unknown 05/20/2025 8:45 AM EDT 05/20/2025 9:11 AM EDT Narrative [facility] - 05/23/2025 1:05 AM EDT Test(s) [id number]-[id number] Basic Protein, CSF results are labeled for research purposes only by the assay's hazmat technician. The performance characteristics of this assay have not been established by the hazmat technician. The result should not be used for treatment or for diagnostic purposes without confirmation of the diagnosis by another medically established diagnostic product or procedure. The performance characteristics were determined by [facility]. us Mickey Esquivel MD LAB BODY FLUIDS AND STOO LS ORDERABLES Final Result [facility] * POC , urine manually resulted (05/20/2025 8:10 AM EDT) [facility] HCG, Ur POC Negative Negative POC hCG Int QC Pass? Yes Yes Urine Urine specimen obtained by clean catch procedure / Unknown 05/20/2025 8:10 AM EDT Holley Whelan MD POINT OF CARE TEST ENTER/EDIT O RDERABLES Final Result * Oligoclonal banding (05/20/2025 7:31 AM EDT) [facility] Oligoclonal Bands See Below 025 12:05 PM EDT [facility] Comment: The sample is negative for CSF-specific oligoclonal bands. The CSF sample contains oligoclonal bands; however, since the corresponding serum contains the same oligoclonal bands, this does not indicate CSF-specific oligoclonal banding, and this is considered a negative study. Test performed at [facility], [address], [place] [address] Zeenat Deleon MD, PhD - [employer] Blood Venous blood specimen / Unknown Venipuncture / Unknown 05/20/2025 7:31 AM EDT 05/20/2025 7:37 AM EDT Mickey Esquivel MD LAB BLOOD ORDERABLES Fin al Result [facility] [address] [place] [address] * Hepatitis C antibody (03/18/2025 2:26 PM EDT) [facility] Hepatitis C Antibody Negative Negative LAB CHEMISTRY METHOD 03/18/2025 5:13 PM EDT [facility] Blood Venous blood specimen / Unknown Venipuncture / Unknown 03/18/2025 2:26 PM EDT 03/18/2025 3:10 PM EDT Mickey Esquivel MD LAB BLOOD ORDERABLES Fin al Result Performing Organization Address [facility]/ZIP Co de Phone Number [facility] [address] [place] [address], [place] [phone] * HIV 1,2 antibody, p24 antigen with reflex to differentiation (03/18/2025 2:26 PM EDT) HIV Combo AB/AG Negative Negative LAB CHEMISTRY METHOD 03/18/2025 5:14 PM EDT [facility] Blood Venous blood specimen / Unknown Venipuncture / Unknown 03/18/2025 2:26 PM EDT 03/18/2025 3:10 PM EDT Narrative [facility] - 03/18/2025 5:14 PM EDT This assay is a 4th generation assay allowing for earlier detection of HIV infection by detecting the presence of the HIV-1 p24 antigen as well as the traditional antibodies to HIV type 1 (including group O) and type 2. Use of a 4th generation assay is the current CDC recommendation for HIV screening. us Mickey Esquivel MD LAB BLOOD ORDERABLES Fin al Result Performing Organization Address [facility] de Phone Number [facility] [address] [place] [address], [place] [phone] from Last 3 Months or Most Recently Relevant to Health Maintenance Insurance [facility] [employer] Care Teams Parking Inspector Relationship Specialty Start Date End Date Mikala Escobedo NP [address] [place] [address] [address] [place] [place] [phone] PCP - General Internal Medicine 12/21/24
--- OUTSIDE RECORDS SUMMARY | 2025-08-16 22:36 | XMS_ITS | Encounter Summary ---
Author Organization [facility] Address [address] [address] Phone Care Team Providers Care Hand Picker Name Role Phone Daisy Mercedes DO Primary Care Provider [phone] Mikala Escobedo NP Primary Care Provider [phone] Encounter Details Date Type Department Care Team (Late st Contact Info) Description 03/21/2023 Procedure Pass [facility] Admitting Dept Virtual Department [address] [place] [address] Social History Tobacco Use Types Packs/Day Years [...] on file Sexual Orientation Not on file documented as of this encounter Plan of Treatment Upcoming Encounters Date Type Department Care Team (Late st Contact Info) Description 07/22/2025 Procedure Pass [facility] [address] [place] [address] 09/23/2025 7:15 AM EST Appointment [facility] [address] [place] [address] Mikala Escobedo NP [address] [place] [address] 09/26/2025 7:15 AM EST Appointment [facility] [address] [place] [address] Mikala Escobedo NP [address] [place] [address] documented as of this encounter Visit Diagnoses Not on filedocumented in this encounter Care Teams Hand Picker Relationship Specialty Start Date End Date Daisy Mercedes DO [address] [place] [address] PCP - General 06/14/17 04/07/23 Mikala Escobedo NP [address] [place] [phone] PCP - General Nurse Practitioner 04/08/23 documented as of this encounter Additional Source Comments The information contained in this document represents components of the legal health record. It is not the complete legal health record.[facility]
--- OUTSIDE RECORDS SUMMARY | 2025-08-16 22:36 | XMS_ITS | Encounter Summary ---
Author Organization [facility] Address [address] [address] Phone Care Team Providers Care Cotton Opener Name Role Phone Daisy Mercedes DO Primary Care Provider Mikala Escobedo NP Primary Care Provider [phone] Encounter Details Date Type Department Care Team (Latest Contact Info) Description 01/14/2023 Transcribe Orders [facility] 2nd Floor [place], [place] [id number] Cha Paulino, TAHIR [address] [place], [place] [id number] [email or web address] Rectal bleeding (Primary Dx); Abdominal pain, epigastric; Lower abdominal pain; Nausea Social History Tobacco Use Types Packs/Day Years Used Date Smoking Tobacco: Never Assessed Education Answer Date Recorded Are you interested in more education? Not on miley e 12/24/2022 Are you concerned about learning? Not on file 12/24/2022 No 12/24/2022 No 12/24/2022 Comments Unknown Sex and Gender Information Value Date Recorded Sex Assigned at Not on file Legal Sex Female 9:19 PM EDT Gender Identity Not on file Sexual Orientation Not on file documented as of this encounter Plan of Treatment Upcoming Encounters Date Type Department Care Team (Late st Contact Info) Description 07/22/2025 Procedure Pass [facility] [address] [place] [address] 09/23/2025 7:15 AM EST Appointment [facility] [address] [place] [address] Mikala Escobedo NP [address] [place] [address] 09/26/2025 7:15 AM EST Appointment [facility] [address] [place] [phone] Mikala Escobedo NP [address] [place] [address] documented as of this encounter Results * C-Reactive Protein (01/14/2023 11:34 AM EDT) Pathologist [facility] C REACTIVE PROTEIN <3.0 0.0 - 4.0 mg/L [facility] Blood 01/14/2023 11:3 4 AM EDT 01/14/2023 11:36 AM EDT us Cha Nerisemely Paulino [employer] LAB BLOOD BKR ORDERABLES F inal Result [facility] [address] [place] [address] * (ABNORMAL) Comprehensive metabolic panel (01/14/2023 11:34 AM EDT) Pathologist [facility] SODIUM 143 133 - 146 mmol/L [facility] POTASSIUM 4.7 3.3 - 5.1 mmol/L [facility] CHLORIDE 106 96 - 108 mmol/L [facility] CO2 25 21 - 35 mmol/L [facility] BUN 7 6 - 19 mg/dL [facility] CREATININE 0.70 0.5 - 1.5 mg/dL [facility] GLUCOSE 126(H) 70 - 99 mg/dL [facility] ALBUMIN 4.5 3.9 - 4.8 g/dL [facility] TOTAL PROTEIN 7.6 6.5 - 8.0 g/dL [facility] CALCIUM 9.9 8.4 - 10.3 mg/dL [facility] ALKALINE PHOSPHATASE 66 39 - 117 U/L [facility] TOTAL BILIRUBIN 0.3 0.0 - 1.2 mg/dL [facility] AST 32 0 - 37 U/L [facility] ALT 35 0 - 40 U/L [facility] GLOBULIN 3.1 1 - 4.8 g/dL [facility] EGFR 112 >59 mL/min/1.7 3m2 [facility] Comment:Estimated glomerular filtration rate calculated using the CKD-EPI refit equation. ANION GAP 17 10 - 20 mmol/L [facility] Blood 01/14/2023 11:3 4 AM EDT 01/14/2023 11:36 AM EDT us Cha Paulino [employer] LAB BLOOD BKR ORDERABLES F inal Result [facility] [address] [place] [address] * CBC and differential (01/14/2023 11:34 AM EDT) WBC 6.08 4.00 - 11.00 K/uL [facility] RBC 4.59 3.72 - 5.30 M/uL [facility] HGB 14.4 10.6 - 15.5 g/dL [facility] HCT 43.3 32.0 - 45.0 % [facility] PLT 323 140 - 430 K/uL [facility] MCV 94.3 78.0 - 97.0 fL [facility] MCH 31.4 25.0 - 33.0 pg [facility] MCHC 33.3 32.0 - 36.0 g/dL [facility] RDW 12.8 11.0 - 16.0 % [facility] MPV 10.6 8.4 - 12.8 fl [facility] DIFF METHOD Auto [facility] NEUTS 55.5 43.0 - 75.0 % [facility] LYMPHS 36.7 18.2 - 47.4 % [facility] MONOS 5.3 4.00 - 11.00 % [facility] EOS 1.8 0.0 - 8.0 % [facility] BASOS 0.5 0.0 - 2.0 % [facility] Granulocytes, immature (%) 0.2 0.0 - 0.9 % [facility] ABSOLUTE NEUTS 3.38 1.80 - 7.70 K/uL [facility] ABSOLUTE LYMPHS 2.23 1.00 - 3.10 K/uL [facility] ABSOLUTE MONOS 0.32 0.20 - 0.80 K/uL [facility] ABSOLUTE EOS 0.11 0.00 - 0.80 K/uL [facility] ABSOLUTE BASOS 0.03 0.00 - 0.09 K/uL [facility] Granulocytes, immature 0.01 0.00 - 0.05 K/uL [facility] Blood 01/14/2023 11:3 4 AM EDT 01/14/2023 11:36 AM EDT Cha Paulino [facility] LAB BLOOD BKR ORDERABLES F inal Result Performing Organization Address City/[facility]/ZIP Co de Phone Number [address] [address] * Immunoglobulin A (01/14/2023 11:34 AM EDT) IgA 217 70 - 400 mg/dL [facility] Blood 01/14/2023 11:3 4 AM EDT 01/14/2023 11:36 AM EDT Cha Paulino [facility] LAB BLOOD BKR ORDERABLES F inal Result Performing Organization Address [facility]/ZIP Co de Phone Number [address] [address] * Tissue transglutaminase IgA (01/14/2023 11:34 AM EDT) TTG IGA ANTIBODY <1.2 <4.0 (Negative) U/mL [facility] Blood 01/14/2023 11:3 4 AM EDT 01/14/2023 11:36 AM EDT Cha Paulino [facility] LAB BLOOD BKR ORDERABLES F inal Result Performing Organization Address City/[facility]/ZIP Co de Phone Number [facility] [address] [place] [address] documented in this encounter Visit Diagnoses Diagnosis Rectal bleeding- Primary Hemorrhage of rectum and anus Abdominal pain, epigastric Lower abdominal pain Abdominal pain, other specified site Nausea Nausea alone documented in this encounter Care Teams Cotton Opener Relationship Specialty Start Date End Date Daisy Mercedes DO [address] [place] [id number] PCP - General 06/14/17 04/07/23 Mikala Escobedo NP [address] [place] [phone] PCP - General Nurse Practitioner 04/08/23 documented as of this encounter Additional Source Comments The information contained in this document represents components of the legal health record. It is not the complete legal health record.[facility]
--- NOTE | 2025-08-17 00:58 | ED_ITS ---
HPI - General Adult General Chief complaint: Skin/Abscess/Foreign Body Stated complaint: left hand has nail stuck in it Time Seen by Provider: 08/17/25 00:11 Source: patient, RN notes reviewed and old records reviewed Mode of arrival: ambulatory Limitations: no limitations History of Present Illness ED Provider: Amelia HPI narrative: 45-year-old female presents for evaluation of left hand pain. Patient's slipped while carrying a Ina tree and a nail went into her left palm. She cleaned the area immediately She applied hydrogen peroxide and then Neosporin The patient reports that she is allergic to the tetanus vaccine and does not wish to have it updated She has mild pain and swelling to the area. She reports that she has MS and has a Briumvi infusion scheduled for Tuesday Denies any fevers or chills Related Data Previous Rx's ?Medication ?Instructions ?Recorded losartan 25 mg tablet 12.5 mg (1/2 x 25 mg) PO NATALIE LY #30 02/10/22 tabs losartan 25 mg tablet 25 mg PO DAILY #14 tabs 03/29 04/19 cephalexin 500 mg tablet 500 mg PO Q8H #9 tabs Allergies Allergy/AdvReac Type Severity Reaction Status Date / Time Tetanus Vaccines and Toxoid Allergy Intermediate Unknown Verified 08/16/25 21:12 drospirenone (From JUICE 28) Allergy Mild RASH Verified 08/16/25 21:12 ethinyl estradiol (From JUICE Allergy Mild RASH Verified 08/16/25 21:12 28) JUICE Allergy Unknown rash Uncoded 11/12/11 00:00 Review of Systems Constitutional: Constitutional: Denies body ache(s), Denies chills, Denies fever(s) and Denies headache(s) Eyes: Eyes: Denies blurry vision ENT: Denies vertigo, Denies dizziness and Denies headache(s) Gastrointestinal: Gastrointestinal: Denies abdominal pain Musculoskeletal: Musculoskeletal: Reports arthralgias, Denies joint swelling and Denies limited range of motion Integumentary/Breasts: Skin/Breast: Reports wounds Neurologic: Denies vertigo, Denies dizziness and Denies headache(s) [facility] Past Medical History Medical History HTN (hypertension) Social History Social History Patient Tobacco Use Status: Never used Tobacco Advance Directives: No Advance Directives Information Provided: No Do you have a plan to hurt others: No Plan Physical Exam ED Vital Signs: Vital Signs - 24 hr 08/16/25 21:08 Temperature 97.6 F Pulse Rate 90 Respiratory Rate 18 Blood Pressure 150/67 H Pulse Oximetry 99 Oxygen Delivery Method Room Air BMI result Body Mass Index 30.9 Const General: healthy appearing, comfortable, no acute distress, alert and awake Nutritional Appearance: well nourished Orientation/consciousness: patient oriented x3 HENMT Head: Yes normocephalic and Yes atraumatic Eyes Eyelids: Yes eyelids normal Conjunctivae: conjunctivae normal Sclerae: sclerae normal Corneas: corneas normal Pupils: Equal, round and reactive pupils present EOM: EOMs intact bilaterally Neck Neck: Yes full ROM Resp Effort & Inspection: normal respiratory effort, able to speak in complete sentences and not labored Cardio Rate: regular rate Rhythm: regular rhythm GI Inspection: No distended Palpation (GI): Soft to palpation, not firm, nontender, no guarding and not rigid Skin General skin exam: elasticity normal Neuro General: patient oriented x3 Cranial nerves: Yes Equal, round and reactive pupils present and Yes Bilaterally intact EOM present Cognition (Neuro): normal cognition Extrem Other: The patient has a pinpoint puncture wound in the palmar surface of the left hand at the 5th proximal metacarpal. That has mild edema around the area, no significant erythema or purulence. The patient is able to flex and extend all digits of the left hand and the wrist. Course Reevaluation(s) Reevaluation #1: The wound was cleaned with Betadine and the patient has soaked for 10 minutes Time: 01:03 Medical Decision Making Medical Decision Making MDM Narrative: 45-year-old female presents for evaluation of LV puncture wound to left hand. She is immunocompromised due to her MS treatments. She is refusing a tetanus booster. Her x-ray was performed that shows no retained foreign body, no evidence of bony abnormality. This happened today and there was no evidence of infection. Given the immunocompromise state I feel is appropriate to discharge the patient with a short course of cephalexin to prevent infection. She will call her infusion center on Tuesday prior to treatment to let them know that she is on cephalexin to see if she should continue with the treatment or delay at. There was no evidence of tenosynovitis Differential Diagnosis Differential Diagnoses: The differential diagnosis associated with the presentation includes Puncture wound Cellulitis Tenosynovitis Foreign body Independent Interpretation I performed an independent interpretation of an: Plain X-Ray Interpretation: No obvious bony abnormality, no obvious retained foreign body Discharge Plan Discharge Clinical Impression: Puncture wound of left hand Patient Disposition: Home, Self-Care Instructions: Puncture Wound (ED) Additional Instructions: Your x-ray did not show any fracture or obvious retained foreign body. Given that you are immune compromised from your MS treatments I feel is appropriate to give you a short course of antibiotics to prevent infection. Call your infusion center Tuesday morning to let them know that you are on cephalexin, but there are no known direct interactions between cephalexin and Briumvi Prescriptions: New cephalexin 500 mg tablet 500 mg PO Q8H Qty: 9 0RF No Action losartan 25 mg tablet 25 mg PO DAILY Qty: 14 0RF losartan 25 mg tablet 12.5 mg PO DAILY Qty: 30 1RF Print Language: Latvian
[2025-08-17 01:20] VITALS: BP 150/67; PULSE 90; RESP 18; TEMP 36.4; O2SAT 99
== END 2025-08-17 01:21 | disposition home or self-care (01) ==
PROVIDERS: Emergency Provider Emergency Medicine Emergency Medical Services; PCP Nurse Practitioner Adult Health
DX: S61.432A Puncture wound without foreign body of left hand, initial encounter (principal); W45.0XXA Nail entering through skin, initial encounter; Y93.9 Activity, unspecified; Y92.9 Unspecified place or not applicable; Y99.9 Unspecified external cause status; I10 Essential (primary) hypertension; D84.9 Immunodeficiency, unspecified; G35.D Multiple sclerosis, unspecified
CPT/HCPCS: 73130; 99282; 99283

== ENCOUNTER → 2025-08-17 00:19 | Outpatient (BNV) | payer OTHER, SELFPAY | PROVIDERS: Emergency Provider Emergency Medicine Emergency Medical Services; PCP Nurse Practitioner Adult Health; Visit Provider Radiology Diagnostic Radiology | DX: S61.432A Puncture wound without foreign body of left hand, initial encounter (principal) | CPT/HCPCS: 73130 ==